=== PATIENT | female | born 1980 | race Caucasian/White ===

== ENCOUNTER 2018-10-29 14:37 | Emergency (ER) | payer OTHER ==
[2018-10-29] MEDS ORDERED: SODIUM CHLORIDE 0.9% 1,000 ML IV STA (15:16)
[2018-10-29] MEDS ORDERED: LORazepam 2 MG/ML INJ IV STA ×2 (15:17→16:09)
--- NOTE | 2018-10-29 15:21 | ED ---
General Adult HPI - General Chief complaint: Anxiety Stated complaint: ETOH Source: patient, EMS, RN notes reviewed, old records reviewed Mode of arrival: EMS Limitations: no limitations - History of Present Illness Initial comments: 38-year-old female patient with past medical history of alcohol abuse presents to ER with 2 days of anxiety, chest pain, shortness of breath. Patient states that she is feeling very anxious, has had problems with anxiety in the past. Patient states that when she starts to feel anxious she gets a pain sensation in her left breast, feels short of breath. Patient states that this resolves when she begins to feel less anxious. Patient states that this is been ongoing for approximately 2 days. Pt denies pleuritic chest pain, pt states that pain is not affected by exertion. Patient denies any recreational drug use. Patient denies any other complaints. Patient denies abdominal pain, diarrhea, fever/ chills. Patient denies dysuria, urinary symptoms. Systemic: Pt denies fatigue, myalgia, fever/chills, rash. Pt denies weakness, night sweats, weight loss. Neuro: Pt denies headache, visual disturbances, syncope or pre-syncope. HEENT: Pt denies ocular discharge or irritation, otalgia, rhinorrhea, pharyngitis or notable lymphadenopathy. Cardiopulmonary: Pt denies heart palpitations, dyspnea on exertion. Abdominal/GI: Pt denies abdominal pain, n/v/d. : Pt denies dysuria, burning w/ urination, frequency/urgency. Denies new onset urinary or bowel incontinence. MSK: Pt denies myalgia, loss of strength or function in extremities. Neuro: Pt denies new onset weakness, paresthesias. - Related Data Home Medications Medication Instructions Recorded Confirmed Loratadine [Claritin] 10 mg PO DAILY 10/29/18 10/29/18 Losartan Potassium 50 mg PO DAILY 10/29/18 10/29/18 Omeprazole 20 mg PO DAILY 10/29/18 10/29/18 valACYclovir [Valtrex] 500 mg PO DAILY 10/29/18 10/29/18 Allergies Allergy/AdvReac Type Severity Reaction Status Date / Time amoxicillin [From Augmentin] Allergy Rash/Hives Verified 10/29/18 15:11 clavulanic acid Allergy Rash/Hives Verified 10/29/18 15:11 [From Augmentin] sulfamethoxazole Allergy Rash/Hives Verified 10/29/18 15:11 [From Bactrim] trimethoprim [From Bactrim] Allergy Rash/Hives Verified 10/29/18 15:11 Review of Systems ROS Statement: Those systems with pertinent positive or pertinent negative responses have been documented in the HPI. ROS Other: All systems not noted in ROS Statement are negative. Past Medical History Past Medical History: Hypertension, Skin Disorder Additional Past Medical History / Comment(s): Skin diana, back pain History of Any Multi-Drug Resistant Organisms: None Reported Past Surgical History: No Surgical Hx Reported Past Psychological History: Anxiety, Depression Smoking Status: Current every day smoker Past Alcohol Use History: Abuse, Heavy Past Drug Use History: Cocaine, Marijuana General Exam - General Exam Comments Initial Comments: Constitutional: NAD, AOX3, Pt has pleasant affect. HEENT: NC/AT, trachea midline, neck supple, no lymphadenopathy. Posterior pharynx non erythematous, without exudates. External ears appear normal, without discharge. Mucous membranes moist. Eyes PERRLA, EOM intact. There is no scleral icterus. No pallor noted. Cardiopulmonary: RRR, no murmurs, rubs or gallops, no JVD noted. Lungs CTAB in anterior and posterior graves. No peripheral edema. Abdominal exam: Abdomen soft and non-distended. Abdomen non-tender to palpation in all 4 quadrants. Bowel sounds active in LLQ. No hepatosplenomegaly. No ecchymosis Neuro: CN II-XII grossly intact. No nuchal rigidity. MSK: No posterior calf tenderness bilaterally, homans sign negative bilaterally. Posterior tibialis and radial pulse +2 bilaterally. Sensation intact in upper and lower extremities. Full active ROM in upper and lower extremities, 5/5 strength. Limitations: no limitations Course Vital Signs 10/29/18 10/29/18 10/29/18 14:42 16:16 17:51 Temperature 97.4 F L Pulse Rate 111 H 105 H 92 Respiratory 18 16 16 Rate Blood Pressure 141/104 125/87 115/83 O2 Sat by Pulse 99 100 99 Oximetry 10/29/18 19:06 Temperature 98.4 F Pulse Rate 101 H Respiratory 18 Rate Blood Pressure 115/80 O2 Sat by Pulse 100 Oximetry Medical Decision Making - Medical Decision Making 38-year-old female patient with past medical history of alcohol abuse presents to ER with 2 days of anxiety, chest pain, shortness of breath. Patient states that she is feeling very anxious, has had problems with anxiety in the past. Patient states that when she starts to feel anxious she gets a pain sensation in her left breast, feels short of breath. Patient states that this resolves when she begins to feel less anxious. Patient states that this is been ongoing for approximately 2 days. Pt denies pleuritic chest pain, pt states that pain is not affected by exertion. Vital signs displayed mild tachycardia of 111 bpm , otherwise stable, 99% SpO2 on room air. Physical exam did not display acute pathology. Laboratory investigations were conducted, CBC noncompressive, CMP revealed creatinine of 1.3 which is stable from 04/2016. AST mildly elevated at 127. Alk phos mildly elevated at 134. UA displayed 11 squamous epithelial cells, negative hCG. Troponin negative. CK-MB within normal limits. Coagulation studies were non impressive. D-dimer was wnl. EKG was not concerning for acute ischemia. Pt dx with atypical chest pain likely 2/2 to anxiety. Pt to f/u with PCP in 1-2 days for continued evaluation. Patient given strict return precautions for return to ED. Patient to return to ED if any new signs symptoms develop, chest pain returns, if shortness of breath returns, if any other new complaints, or if condition worsens in anyway. Pt states she is getting ride home. Case discussed in depth with Dr. Alfaro. Provided substance abuse referrals. - Lab Data Result diagrams: 10/29/18 15:40 10/29/18 15:40 Lab Results 10/29/18 10/29/18 10/29/18 Range/Units 15:37 15:37 15:40 WBC (3.8-10.6) k/uL RBC (3.80-5.40) m/uL Hgb (11.4-16.0) gm/dL Hct (34.0-46.0) % MCV (80.0-100.0) fL MCH (25.0-35.0) pg MCHC (31.0-37.0) g/dL RDW (11.5-15.5) % Plt Count (150-450) k/uL Neutrophils % % Lymphocytes % % Monocytes % % Eosinophils % % Basophils % % Neutrophils # (1.3-7.7) k/uL Lymphocytes # (1.0-4.8) k/uL Monocytes # (0-1.0) k/uL Eosinophils # (0-0.7) k/uL Basophils # (0-0.2) k/uL Macrocytosis PT (9.0-12.0) sec INR (<1.2) APTT (22.0-30.0) sec D-Dimer (<0.60) mg/L FEU Sodium (137-145) mmol/L Potassium (3.5-5.1) mmol/L Chloride (98-107) mmol/L Carbon Dioxide (22-30) mmol/L Anion Gap mmol/L BUN (7-17) mg/dL Creatinine (0.52-1.04) mg/dL Est GFR (CKD-EPI)AfAm (>60 ml/min/1.73 sqM) Est GFR (CKD-EPI)NonAf (>60 ml/min/1.73 sqM) Glucose (74-99) mg/dL Calcium (8.4-10.2) mg/dL Magnesium (1.6-2.3) mg/dL Total Bilirubin (0.2-1.3) mg/dL AST (14-36) U/L ALT (9-52) U/L Alkaline Phosphatase (38-126) U/L Total Creatine Kinase 114 (30-135) U/L CK-MB (CK-2) 0.7 (0.0-2.4) ng/mL CK-MB (CK-2) Rel Index 0.6 Troponin I <0.012 (0.000-0.034) ng/mL Total Protein (6.3-8.2) g/dL Albumin (3.5-5.0) g/dL Urine Color Yellow Urine Appearance Clear (Clear) Urine pH 5.5 (5.0-8.0) Ur Specific [place] 1.011 (1.001-1.035) Urine Protein 1+ H (Negative) Urine Glucose (UA) Negative (Negative) Urine Ketones Negative (Negative) Urine Blood Negative (Negative) Urine Nitrite Negative (Negative) Urine Bilirubin Negative (Negative) Urine Urobilinogen <2.0 (<2.0) mg/dL Ur Leukocyte Esterase Negative (Negative) Urine RBC <1 (0-5) /hpf Urine WBC 2 (0-5) /hpf Ur Squamous Epith Cells 11 H (0-4) /hpf Amorphous Sediment Rare H (None) /hpf Hyaline Casts 32 H (0-2) /lpf Urine Mucus Rare H (None) /hpf Urine HCG, Qual Not Detected (Not Detectd) 10/29/18 10/29/18 10/29/18 Range/Units 15:40 15:40 15:40 WBC 4.8 (3.8-10.6) k/uL RBC 4.39 (3.80-5.40) m/uL Hgb 15.0 (11.4-16.0) gm/dL Hct 45.6 (34.0-46.0) % MCV 103.9 H (80.0-100.0) fL MCH 34.3 (25.0-35.0) pg MCHC 33.0 (31.0-37.0) g/dL RDW 13.8 (11.5-15.5) % Plt Count 105 L (150-450) k/uL Neutrophils % 61 % Lymphocytes % 30 % Monocytes % 4 % Eosinophils % 3 % Basophils % 1 % Neutrophils # 2.9 (1.3-7.7) k/uL Lymphocytes # 1.4 (1.0-4.8) k/uL Monocytes # 0.2 (0-1.0) k/uL Eosinophils # 0.1 (0-0.7) k/uL Basophils # 0.0 (0-0.2) k/uL Macrocytosis Slight PT 9.3 (9.0-12.0) sec INR 0.8 (<1.2) APTT 27.7 (22.0-30.0) sec D-Dimer 0.52 (<0.60) mg/L FEU Sodium 143 (137-145) mmol/L Potassium 4.3 (3.5-5.1) mmol/L Chloride 105 (98-107) mmol/L Carbon Dioxide 23 (22-30) mmol/L Anion Gap 15 mmol/L BUN 9 (7-17) mg/dL Creatinine 1.30 H (0.52-1.04) mg/dL Est GFR (CKD-EPI)AfAm 60 (>60 ml/min/1.73 sqM) Est GFR (CKD-EPI)NonAf 52 (>60 ml/min/1.73 sqM) Glucose 88 (74-99) mg/dL Calcium 9.6 (8.4-10.2) mg/dL Magnesium 2.2 (1.6-2.3) mg/dL Total Bilirubin 0.6 (0.2-1.3) mg/dL AST 127 H (14-36) U/L ALT 44 (9-52) U/L Alkaline Phosphatase 134 H (38-126) U/L Total Creatine Kinase (30-135) U/L CK-MB (CK-2) (0.0-2.4) ng/mL CK-MB (CK-2) Rel Index Troponin I (0.000-0.034) ng/mL Total Protein 9.8 H (6.3-8.2) g/dL Albumin 5.4 H (3.5-5.0) g/dL Urine Color Urine Appearance (Clear) Urine pH (5.0-8.0) Ur Specific [place] (1.001-1.035) Urine Protein (Negative) Urine Glucose (UA) (Negative) Urine Ketones (Negative) Urine Blood (Negative) Urine Nitrite (Negative) Urine Bilirubin (Negative) Urine Urobilinogen (<2.0) mg/dL Ur Leukocyte Esterase (Negative) Urine RBC (0-5) /hpf Urine WBC (0-5) /hpf Ur Squamous Epith Cells (0-4) /hpf Amorphous Sediment (None) /hpf Hyaline Casts (0-2) /lpf Urine Mucus (None) /hpf Urine HCG, Qual (Not Detectd) - EKG Data -: EKG Interpreted by Me (and dr olson;) EKG Comments: Ventricular rate 107,. And for 126, QRS 88, QTC is QTC 344/459. Sinus tachycardia. Otherwise normal EKG. Disposition Clinical Impression: Acute anxiety, Atypical chest pain Disposition: HOME SELF-CARE Condition: Good Instructions: Generalized Anxiety Disorder (ED), Abuse of Alcohol (ED), Noncardiac Chest Pain (ED) Additional Instructions: Patient to adhere to previously discussed treatment plan and will take medication(s) as directed. Patient to follow up with PCP in 1-2 days. Patient to return to ED if symptoms do not improve. Is patient prescribed a controlled substance at d/c from ED?: No Referrals: Ji Lan MD [Primary Care Provider] - 1-2 days Time of Disposition: 18:40
--- NOTE | 2018-10-29 15:57 | XR ---
EXAMINATION TYPE: XR chest 2V DATE OF EXAM: 10/29/2018 COMPARISON: None HISTORY: Chest pain TECHNIQUE: Frontal and lateral views of the chest are obtained. FINDINGS: Nodular density superimposed over the posterior right fifth rib measuring approximately 1 c m. There is no pleural effusion or pneumothorax seen. The cardiac silhouette size is within normal l imits, small. Prominent lung volume may be indicative of underlying COPD. There are overlying cardiac leads. The osseous structures are intact. IMPRESSION: Indeterminate right upper lobe lung nodule.
[2018-10-29 16:04] LABS: Amorphous Sediment,Urine Rare /hpf; Appearance,Urine Clear (Clear); Bilirubin,Urine Negative (Negative); Blood,Urine Negative (Negative); Color,Urine Yellow; Glucose,Urine (UA) Negative (Negative); Hyaline Casts,Urine 32 /lpf (0-2); Ketones,Urine Negative (Negative); Leukocyte Esterase,Urine Negative (Negative); Mucus,Urine Rare /hpf; Nitrite,Urine Negative (Negative); PH, Urine 5.5 (5.0-8.0); Protein,Urine 1+ (Negative); RBC,Urine <1 /hpf (0-5); Specific Gravity,Urine 1.011 (1.001-1.035); Squamous Epithelial Cell,Urine 11 /hpf (0-4); Urobilinogen,Urine <2.0 mg/dL (<2.0)
[2018-10-29 16:08] LABS: Basophils % (A) 1 %; Eosinophils # (A) 0.1 k/uL (0-0.7); Eosinophils % (A) 3 %; HCT 45.6 % (34.0-46.0); Lymphocytes # (A) 1.4 k/uL (1.0-4.8); Lymphocytes % (A) 30 %; MCH 34.3 pg (25.0-35.0); MCV 103.9 fL (80.0-100.0); Macrocytosis Slight; Mean Platelet Volume 6.5; Monocytes # (A) 0.2 k/uL (0-1.0); Monocytes % (A) 4 %; Neutrophils # (A) 2.9 k/uL (1.3-7.7); Neutrophils % (A) 61 %; Platelet Count 105 k/uL (150-450); RBC 4.39 m/uL (3.80-5.40); RDW 13.8 % (11.5-15.5); WBC 4.8 k/uL (3.8-10.6)
[2018-10-29 16:16] LABS: Albumin 5.4 g/dL (3.5-5.0); Calcium 9.6 mg/dL (8.4-10.2); Magnesium 2.2 mg/dL (1.6-2.3); Potassium 4.3 mmol/L (3.5-5.1); Total Bilirubin 0.6 mg/dL (0.2-1.3); Total Protein 9.8 g/dL (6.3-8.2)
[2018-10-29 16:17] LABS: Creatine Kinase 114 U/L (30-135)
[2018-10-29 16:18] LABS: D-Dimer 0.52 mg/L FEU (<0.60); INR 0.8 (<1.2); Partial Thromboplastin Time 27.7 sec (22.0-30.0); Prothrombin Time 9.3 sec (9.0-12.0)
[2018-10-29 16:31] LABS: Creatine Kinase MB 0.7 ng/mL (0.0-2.4); Troponin I <0.012 ng/mL (0.000-0.034)
[2018-10-29 19:07] VITALS: BP 115/80; PULSE 101; RESP 18; TEMP 98.4
== END 2018-10-29 19:06 | disposition home or self-care (01) ==
LOC: EC 14:37
DX: F41.9 Anxiety disorder, unspecified (principal); R07.89 Other chest pain; R06.02 Shortness of breath; R74.0 Nonspecific elevation of levels of transaminase and lactic acid dehydrogenase [LDH]; R74.8 Abnormal levels of other serum enzymes; N64.4 Mastodynia; I10 Essential (primary) hypertension; F32.9 Major depressive disorder, single episode, unspecified; F17.200 Nicotine dependence, unspecified, uncomplicated; Z53.8 Procedure and treatment not carried out for other reasons; Z79.899 Other long term (current) drug therapy; Z88.0 Allergy status to penicillin; Z88.2 Allergy status to sulfonamides
CPT/HCPCS: 36415; 93005; 85379; 80053; 82550; 82553; 83735; 84484; 85025; 85610; 85730; 81001; 81025; 71046; 99284; 96374; 96361 ×3; J2060

== ENCOUNTER → 2021-10-07 | Outpatient (CLI) | payer OTHER | END | disposition home or self-care (01) | LOC: PNWHC3 12:57 | PROVIDERS: ATTEND Specialist | DX: Z53.9 Procedure and treatment not carried out, unspecified reason (principal) ==

== ENCOUNTER 2022-06-25 09:20 | Emergency (ER) | payer OTHER ==
[2022-06-25 10:04] VITALS: TEMP 97.5
--- NOTE | 2022-06-25 10:11 | ED ---
Seizure HPI - General Source: patient, EMS, RN notes reviewed Mode of arrival: EMS Limitations: no limitations <Jn Reyes - Last Filed: 06/25/22 15:33> <John Lynn - Last Filed: 06/25/22 21:11> - General Chief Complaint: Seizure Stated Complaint: poss seizure Time Seen by Provider: 06/25/22 09:28 - History of Present Illness Initial Comments: 42-year-old female presents emergency Department chief complaint of seizure. Patient is right-hand via EMS from [facility]. Patient has been at [facility] for 5 days after state at [facility] patient has known liver failure from alcohol abuse, patient is known to be jaundice. Patient initially was unresponsive reportedly had a seizure with bleeding from her tongue. Patient was postictal black mentation has been improving. She has no specific complaints other than mild headache, fatigue feeling. (Jn Reyes) - Related Data Home Medications Medication Instructions Recorded Confirmed Omeprazole 20 mg PO DAILY 10/29/18 06/25/22 Acyclovir 400 mg PO DAILY@69906/25/22 06/25/22 Ascorbic Acid [Vitamin C] 500 mg PO DAILY@69906/25/22 06/25/22 Cholecalciferol [Vitamin D3 (25 50 mcg PO HS 06/25/22 06/25/22 Mcg = 1000 Iu)] Famotidine [Pepcid] 20 mg PO DAILY@69906/25/22 06/25/22 Folic Acid 1 mg PO DAILY@69906/25/22 06/25/22 Furosemide [Lasix] 20 mg PO DAILY 06/25/22 06/25/22 Ibuprofen [Motrin Ib] 400 mg PO Q6H PRN 06/25/22 06/25/22 Ipratropium-Albuterol Nebulize 3 ml INHALATION RT-QID 06/25/22 06/25/22 [Duoneb 0.5 mg-3 mg/3 ml Soln] Levothyroxine Sodium [Synthroid] 75 mcg PO AC-BRKFST@0706/25/22 06/25/22 Metoprolol Tartrate [Lopressor] 12.5 mg PO BID@0700,1600 06/25/22 06/25/22 Ondansetron [Zofran] 4 mg PO Q6H PRN 06/25/22 06/25/22 Potassium Chloride [Potassium 10 meq PO DAILY 06/25/22 06/25/22 Chloride ER] Vitamin B Complex 2 cap PO HS 06/25/22 06/25/22 oxyCODONE HCL [OxyIR] 5 mg PO Q8H PRN 06/25/22 06/25/22 Allergies Allergy/AdvReac Type Severity Reaction Status Date / Time amoxicillin [From Augmentin] Allergy Rash/Hives Verified 06/25/22 12:27 clavulanic acid Allergy Rash/Hives Verified 06/25/22 12:27 [From Augmentin] morphine Allergy Unknown Verified 06/25/22 12:27 Penicillins Allergy Unknown Verified 06/25/22 12:27 sulfamethoxazole Allergy Rash/Hives Verified 06/25/22 12:27 [From Bactrim] trimethoprim [From Bactrim] Allergy Rash/Hives Verified 06/25/22 12:27 Review of Systems ROS Other: All systems not noted in ROS Statement are negative. <Jn Reyes - Last Filed: 06/25/22 15:33> ROS Other: All systems not noted in ROS Statement are negative. <John Lynn - Last Filed: 06/25/22 21:11> ROS Statement: Those systems with pertinent positive or pertinent negative responses have been documented in the HPI. Past Medical History Past Medical History: Hypertension, Skin Disorder Additional Past Medical History / Comment(s): Skin diana, back pain History of Any Multi-Drug Resistant Organisms: None Reported Past Surgical History: No Surgical Hx Reported Past Psychological History: Anxiety, Depression Smoking Status: Former smoker Past Alcohol Use History: Abuse, Heavy Past Drug Use History: Cocaine, Marijuana <Jn Reyes - Last Filed: 06/25/22 15:33> General Exam Limitations: no limitations General appearance: alert, in no apparent distress, other (Icterus) Head exam: Present: atraumatic, normocephalic, normal inspection Eye exam: Present: normal appearance, PERRL, EOMI. Absent: scleral icterus, conjunctival injection, periorbital swelling ENT exam: Present: mucous membranes moist. Absent: normal exam, normal oropharynx (Bite barby note on tongue, no active bleeding) Neck exam: Present: normal inspection, full ROM. Absent: tenderness, meningismus, lymphadenopathy Respiratory exam: Present: normal lung sounds bilaterally. Absent: respiratory distress, wheezes, rales, rhonchi, stridor Cardiovascular Exam: Present: regular rate, normal rhythm, normal heart sounds. Absent: systolic murmur, diastolic murmur, rubs, gallop, clicks Neurological exam: Present: alert, oriented X3, CN II-XII intact, reflexes normal. Absent: motor sensory deficit Skin exam: Present: warm, dry, intact, normal color. Absent: rash <Jn Reyes - Last Filed: 06/25/22 15:33> Course Vital Signs 06/25/22 06/25/22 06/25/22 10:01 15:21 16:27 Temperature 97.5 F L Pulse Rate 86 79 75 Respiratory 18 18 18 Rate Blood Pressure 99/82 117/92 69/44 O2 Sat by Pulse 98 98 100 Oximetry 06/25/22 06/25/22 06/25/22 17:50 18:00 18:54 Temperature Pulse Rate 74 71 71 Respiratory 16 16 16 Rate Blood Pressure 118/87 118/87 111/82 O2 Sat by Pulse 97 97 98 Oximetry Medical Decision Making - Lab Data Result diagrams: 06/25/22 11:12 06/25/22 11:12 <Jn Reyes - Last Filed: 06/25/22 15:33> - Lab Data Result diagrams: 06/25/22 11:12 06/25/22 11:12 <John Lynn - Last Filed: 06/25/22 21:11> - Medical Decision Making 42-year-old female presented for possible seizure at [facility]. Patient may have had a seizure versus syncopal episode. Patient acting her baseline, is a ble drive further information see that she was at [facility] secondary to weakness unable to care for herself. She states she lives with her parents. 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 She is followed by [facility]. Patient recent stop drinking secondary to liver disease and has been sober since admission at [facility]. Patient does not endorse and cleansed headache neck pain associated complaints other than mild tongue injury. Patient's labs reveal liver failure which is consistent with prior labs bilirubin and mildly elevated ammonia level Estella given patient's liver dise ase. Patient was given lactulose may require to be on daily lactulose. (Jn Reyes) I was notified by nursing staff that when EMS arrived to take the patient, patient was hypotensive on the monitor. I asked him to give a 500 mL bolus. I did present bedside to evaluate the patient. She is asymptomatic in terms of her low blood pressure. She is still receiving IV fluids at this time however her pressure shows 110 over 80s. I discussed at length with the patient as well as her daughter. It does appear that patient is having liver dysfunction likely secondary to liver disease from chronic alcoholism. I reviewed the labs with the mid-level provider earlier today, and patient had an elevated bilirubin at the other facility around 10. It is more elevated stay at 15. Coags are slightly worse. LFTs and alk phos are similar. Ammonia is slightly elevated to 64 and she was given a prescription for lactulose. Remainder the labs are unremarkable. She did present for concern for possible syncopal episode versus new onset seizure. Seizure workup was negative. I did discuss with him that we do not have GI services with liver specialist at our facility. Patient does have a history of a Whipple procedure done at [facility]. We discussed the option of transfer, with potential for boarding in our ER for multiple days versus discharge back to her facility and outpatient follow-up and the patient as well as her sister prefer outpatient follow-up. Patient will be discharged back to her facility. I did discuss with him that I believe it is reasonable to discharge home at this time with strict return precautions. They were in agreement with this plan. I recommended follow-up with her surgeon at [facility]. Patient otherwise is asymptomatic at this time. She is obviously jaundiced. They were in agreement with this plan. Patient will return if needed. Pressure remains within normal limits. Patient is discharged in stable condition. (John Lynn) - Lab Data Lab Results 06/25/22 06/25/22 06/25/22 Range/Units 11:12 11:12 11:12 WBC 12.2 H (3.8-10.6) k/uL RBC 3.01 L (3.80-5.40) m/uL Hgb 10.2 L (11.4-16.0) gm/dL Hct 33.6 L (34.0-46.0) % MCV 111.6 H (80.0-100.0) fL MCH 34.0 (25.0-35.0) pg MCHC 30.4 L (31.0-37.0) g/dL RDW 20.6 H (11.5-15.5) % Plt Count 30 L (150-450) k/uL MPV 12.7 Neutrophils % 73 % Lymphocytes % 14 % Monocytes % 9 % Eosinophils % 0 % Basophils % 1 % Neutrophils # 8.9 H (1.3-7.7) k/uL Lymphocytes # 1.7 (1.0-4.8) k/uL Monocytes # 1.1 H (0-1.0) k/uL Eosinophils # 0.0 (0-0.7) k/uL Basophils # 0.2 (0-0.2) k/uL Polychromasia Present Hypochromasia Marked Poikilocytosis Slight Poikilocytosis (manual Present Anisocytosis Moderate Macrocytosis Marked A PT 22.1 H (9.0-12.0) sec INR 2.2 H (<1.2) APTT >200.0 H* (22.0-30.0) sec Sodium 134 L (137-145) mmol/L Potassium 4.1 (3.5-5.1) mmol/L Chloride 108 H (98-107) mmol/L Carbon Dioxide 13 L (22-30) mmol/L Anion Gap 13 mmol/L BUN 8 (7-17) mg/dL Creatinine 2.19 H (0.52-1.04) mg/dL Est GFR (CKD-EPI)AfAm 31 (>60 ml/min/1.73 sqM) Est GFR (CKD-EPI)NonAf 27 (>60 ml/min/1.73 sqM) Glucose 68 L (74-99) mg/dL POC Glucose (mg/dL) (70-110) mg/dL POC Glu [employer] Operator Helper ID Calcium 8.5 (8.4-10.2) mg/dL Magnesium 1.7 (1.6-2.3) mg/dL Total Bilirubin 15.1 H* (0.2-1.3) mg/dL AST 75 H (14-36) U/L ALT 24 (4-34) U/L Alkaline Phosphatase 213 H (38-126) U/L Ammonia (<30) umol/L Total Protein 5.7 L (6.3-8.2) g/dL Albumin 2.2 L (3.5-5.0) g/dL Urine Color Urine Appearance (Clear) Urine pH (5.0-8.0) Ur Specific [place] (1.001-1.035) Urine Protein (Negative) Urine Glucose (UA) (Negative) Urine Ketones (Negative) Urine Blood (Negative) Urine Nitrite (Negative) Urine Bilirubin (Negative) Urine Urobilinogen (<2.0) mg/dL Ur Leukocyte Esterase (Negative) Urine RBC (0-5) /hpf Urine WBC (0-5) /hpf Ur Squamous Epith Cells (0-4) /hpf Urine Bacteria (None) /hpf Urine Mucus (None) /hpf 06/25/22 06/25/22 06/25/22 Range/Units 11:21 13:50 15:26 WBC (3.8-10.6) k/uL RBC (3.80-5.40) m/uL Hgb (11.4-16.0) gm/dL Hct (34.0-46.0) % MCV (80.0-100.0) fL MCH (25.0-35.0) pg MCHC (31.0-37.0) g/dL RDW (11.5-15.5) % Plt Count (150-450) k/uL MPV Neutrophils % % Lymphocytes % % Monocytes % % Eosinophils % % Basophils % % Neutrophils # (1.3-7.7) k/uL Lymphocytes # (1.0-4.8) k/uL Monocytes # (0-1.0) k/uL Eosinophils # (0-0.7) k/uL Basophils # (0-0.2) k/uL Polychromasia Hypochromasia Poikilocytosis Poikilocytosis (manual Anisocytosis Macrocytosis PT (9.0-12.0) sec INR (<1.2) APTT (22.0-30.0) sec Sodium (137-145) mmol/L Potassium (3.5-5.1) mmol/L Chloride (98-107) mmol/L Carbon Dioxide (22-30) mmol/L Anion Gap mmol/L BUN (7-17) mg/dL Creatinine (0.52-1.04) mg/dL Est GFR (CKD-EPI)AfAm (>60 ml/min/1.73 sqM) Est GFR (CKD-EPI)NonAf (>60 ml/min/1.73 sqM) Glucose (74-99) mg/dL POC Glucose (mg/dL) 79 (70-110) mg/dL POC Glu [employer] H[employer] Operator Helper ID Hardy Celaya Calcium (8.4-10.2) mg/dL Magnesium (1.6-2.3) mg/dL Total Bilirubin (0.2-1.3) mg/dL AST (14-36) U/L ALT (4-34) U/L Alkaline Phosphatase (38-126) U/L Ammonia 64 H (<30) umol/L Total Protein (6.3-8.2) g/dL Albumin (3.5-5.0) g/dL Urine Color Dark Brown Urine Appearance Cloudy H (Clear) Urine pH 5.5 (5.0-8.0) Ur Specific [place] 1.010 (1.001-1.035) Urine Protein Trace H (Negative) Urine Glucose (UA) Negative (Negative) Urine Ketones Negative (Negative) Urine Blood Large H (Negative) Urine Nitrite Negative (Negative) Urine Bilirubin 2+ H (Negative) Urine Urobilinogen <2.0 (<2.0) mg/dL Ur Leukocyte Esterase Large H (Negative) Urine RBC 2 (0-5) /hpf Urine WBC 21 H (0-5) /hpf Ur Squamous Epith Cells 13 H (0-4) /hpf Urine Bacteria Rare H (None) /hpf Urine Mucus Rare H (None) /hpf Disposition Is patient prescribed a controlled substance at d/c from ED?: No Time of Disposition: 15:38 <Jn Reyes - Last Filed: 06/25/22 15:33> <John Lynn - Last Filed: 06/25/22 21:11> Clinical Impression: Chronic liver failure, Seizure, History of alcoholism Disposition: HOME SELF-CARE Condition: Poor Instructions (If sedation given, give patient instructions): Seizure/Epilepsy Discharge Instructions & Follow-Up Additional Instructions: Follow-up with GI/neurology. Please return to the Emergency Department if symptoms worsen or any other concerns. Referrals: Nonstaff,Physician [REFERRING] - 1-2 days
[2022-06-25 12:00] LABS: Albumin 2.2 g/dL (3.5-5.0); Calcium 8.5 mg/dL (8.4-10.2); Magnesium 1.7 mg/dL (1.6-2.3); Potassium 4.1 mmol/L (3.5-5.1)
[2022-06-25 12:08] LABS: Appearance,Urine Cloudy (Clear); Bacteria,Urine Rare /hpf; Bilirubin,Urine 2+ (Negative); Blood,Urine Large (Negative); Color,Urine Dark Brown; Glucose,Urine (UA) Negative (Negative); Ketones,Urine Negative (Negative); Leukocyte Esterase,Urine Large (Negative); Mucus,Urine Rare /hpf; Nitrite,Urine Negative (Negative); PH, Urine 5.5 (5.0-8.0); Protein,Urine Trace (Negative); RBC,Urine 2 /hpf (0-5); Squamous Epithelial Cell,Urine 13 /hpf (0-4); Urobilinogen,Urine <2.0 mg/dL (<2.0); WBC,Urine 21 /hpf (0-5)
[2022-06-25 12:19] LABS: Anisocytosis Moderate; Basophils # (A) 0.2 k/uL (0-0.2); Basophils % (A) 1 %; Eosinophils % (A) 0 %; HCT 33.6 % (34.0-46.0); HGB 10.2 gm/dL (11.4-16.0); Hypochromasia Marked; Lymphocytes # (A) 1.7 k/uL (1.0-4.8); Lymphocytes % (A) 14 %; MCHC 30.4 g/dL (31.0-37.0); MCV 111.6 fL (80.0-100.0); Macrocytosis Marked; Mean Platelet Volume 12.7; Monocytes # (A) 1.1 k/uL (0-1.0); Monocytes % (A) 9 %; Neutrophils # (A) 8.9 k/uL (1.3-7.7); Neutrophils % (A) 73 %; Poikilocytosis Slight; RBC 3.01 m/uL (3.80-5.40); RDW 20.6 % (11.5-15.5); WBC 12.2 k/uL (3.8-10.6)
[2022-06-25 12:20] LABS: Total Bilirubin 15.1 mg/dL (0.2-1.3); Total Protein 5.7 g/dL (6.3-8.2)
[2022-06-25 12:45] LABS: Prothrombin Time 22.1 sec (9.0-12.0)
[2022-06-25 12:49] LABS: INR 2.2 (<1.2); Partial Thromboplastin Time >200.0 sec (22.0-30.0)
[2022-06-25 14:04] LABS: Poikilocytosis (M) Present; Polychromasia Present
[2022-06-25 14:05] LABS: Platelet Count 30 k/uL (150-450)
[2022-06-25] MEDS ORDERED: LACTULOSE 20 GM/30 ML CUP PO ONE (15:32)
[2022-06-25 15:37] LABS: Glucose,Whole Blood 79 mg/dL (70-110)
[2022-06-25] MEDS ORDERED: SODIUM CHLORIDE 0.9% 500 ML 500 ML IV ONE (16:35)
[2022-06-25 17:50] VITALS: RESP 16
[2022-06-25 18:23] VITALS: PULSE 71
[2022-06-25 18:55] VITALS: BP 111/82
--- NOTE | 2022-06-26 16:39 | CT ---
EXAMINATION TYPE: CT brain wo con DATE OF EXAM: 06/25/2022 COMPARISON: None HISTORY: Seizure CT DLP: 1118.4 mGycm. Automated Exposure Control for Dose Reduction was Utilized. TECHNIQUE: CT scan of the head is performed without contrast. FINDINGS: No acute intracranial hemorrhage or midline shift identified. Mild/moderate sulcal promine nce particularly over the bilateral superior frontal lobes is isodense to CSF. Findings prominent rahul ecially for patient's chronologic age. No hydrocephalus. Mild low attenuation in the periventricular white matter. The globes are intact and the visualized sinuses are clear. IMPRESSION: Mild cerebral atrophy and chronic small vessel ischemic change. Small to tiny chronic sub dural hygromas superiorly are noted. Preliminary report provided by on site radiologist.
== END 2022-06-25 19:04 | disposition home or self-care (01) ==
LOC: EC 09:20
DX: R56.9 Unspecified convulsions (principal); K72.10 Chronic hepatic failure without coma; F10.21 Alcohol dependence, in remission; I10 Essential (primary) hypertension; Z87.891 Personal history of nicotine dependence; Z79.899 Other long term (current) drug therapy; Z88.0 Allergy status to penicillin; Z88.1 Allergy status to other antibiotic agents; Z88.6 Allergy status to analgesic agent; Z88.2 Allergy status to sulfonamides
CPT/HCPCS: 36415; 70450; 80053; 81001; 82140; 83735; 85025; 85610; 85730; 87077; 87086; 87186; 99285

== ENCOUNTER 2022-06-26 18:37 | Inpatient (IN) | payer OTHER ==
[2022-06-26 20:27] LABS: ALT 22 U/L (4-34); AST 73 U/L (14-36); Acetaminophen <10.0 ug/mL; African American GFR (CKD) 26 (>60 ml/min/1.73 sqM); Albumin 2.2 g/dL (3.5-5.0); Alkaline Phosphatase 222 U/L (38-126); Anion Gap 15 mmol/L; Bilirubin, Conjugated 10.7 mg/dL (0.0-0.3); Bilirubin,Unconjugated 1.3 mg/dL (0.0-1.1); Blood Urea Nitrogen 9 mg/dL (7-17); Calcium 8.2 mg/dL (8.4-10.2); Carbon Dioxide 13 mmol/L (22-30); Chloride 109 mmol/L (98-107); Creatine Kinase 24 U/L (30-135); Glucose 81 mg/dL (74-99); Magnesium 1.7 mg/dL (1.6-2.3); Non-African American GFR(CKD) 22 (>60 ml/min/1.73 sqM); Potassium 3.7 mmol/L (3.5-5.1); Sodium 137 mmol/L (137-145)
[2022-06-26 20:29] LABS: Anisocytosis Moderate; Basophils # (A) 0.1 k/uL (0-0.2); Basophils % (A) 1 %; Eosinophils # (A) 0.1 k/uL (0-0.7); Eosinophils % (A) 0 %; HCT 32.8 % (34.0-46.0); HGB 9.8 gm/dL (11.4-16.0); Hypochromasia Marked; Lymphocytes # (A) 1.5 k/uL (1.0-4.8); Lymphocytes % (A) 12 %; MCV 113.6 fL (80.0-100.0); Macrocytosis Marked; Mean Platelet Volume 12.4; Monocytes # (A) 0.8 k/uL (0-1.0); Monocytes % (A) 7 %; Neutrophils # (A) 9.4 k/uL (1.3-7.7); Neutrophils % (A) 77 %; Poikilocytosis Slight; RBC 2.89 m/uL (3.80-5.40); RDW 20.8 % (11.5-15.5); WBC 12.2 k/uL (3.8-10.6)
[2022-06-26 20:31] LABS: Total Protein 5.6 g/dL (6.3-8.2)
[2022-06-26 20:45] LABS: Lactic Acid, Venous 2.2 mmol/L (0.7-2.0)
[2022-06-26 20:56] LABS: Polychromasia Present
[2022-06-26 20:57] LABS: Platelet Count 38 k/uL (150-450)
[2022-06-26] MEDS ORDERED: LORazepam 2 MG/ML INJ IV STA (21:07)
--- NOTE | 2022-06-26 21:14 | ED ---
Seizure HPI - General Source: patient, family, EMS Mode of arrival: EMS Limitations: physical limitation <Arina Martins - Last Filed: 06/26/22 22:26> <Kurtis Juan - Last Filed: 06/27/22 08:28> - History of Present Illness MD Complaint: seizure (With history of alcohol withdrawal) -: hour(s) Description of Episode: loss of consciousness, tonic-clonic movement Witnessed: yes - by bystander Trauma: No Seizure History: history of withdrawal seizures Place: home, street/outdoors (While transferring to [facility]) Possible Precipitating Event: alcohol withdrawal Associated Symptoms: denies other symptoms Treatments Prior to Arrival: benzodiazepines <Gold Nolan - Last Filed: 06/28/22 02:56> - General Chief Complaint: Seizure Stated Complaint: seizure Time Seen by Provider: 06/26/22 18:50 - History of Present Illness Initial Comments: 42-year-old female with past medical history of whipple procedure at [facility] due to benign mass, alcohol abuse who presents to the emergency department from [facility]. Patient has history of significant alcohol abuse and last drink was 3 weeks ago. She was then hospitalized at [facility] and sent to [facility] for rehab. Family reports that they were told that the patient had acute kidney injury. She has been at the rehab facility. Yesterday was transported into [facility] for new onset seizure-like activity. Evaluation yesterday demonstrated elevated bilirubins. Family aware that her hospital did not have GI services and was requesting to follow up outpatient with neurology and GI rather than have the patient transferred to an outside facility. Family went to her rehab center today, attempted to load the patient into their vehicle and drive her to a facility that does have GI capabilities however the patient ended up having a second seizure in their vehicle. Was full tonic-clonic that lasted 30 seconds. The patient did bite her tongue. She is not on any seizure medications. Was given a prescription for lactulose yesterday. Patient did not sustain any trauma today. No other alleviating, precipitating or modifying factors (Arina Martins) - Related Data Home Medications Medication Instructions Recorded Confirmed Omeprazole 20 mg PO DAILY 10/29/18 06/27/22 Acyclovir 400 mg PO DAILY@0700 06/25/22/09/22 Ascorbic Acid [Vitamin C] 500 mg PO DAILY@69906/25/22 06/27/22 Cholecalciferol [Vitamin D3 (25 50 mcg PO HS 06/25/22 06/27/22 Mcg = 1000 Iu)] Famotidine [Pepcid] 20 mg PO DAILY@0706/25/22 06/27/22 Folic Acid 1 mg PO DAILY@0706/25/22 06/27/22 Furosemide [Lasix] 20 mg PO DAILY 06/25/22 06/27/22 Ibuprofen [Motrin Ib] 400 mg PO Q6H PRN 06/25/22 06/27/22 Ipratropium-Albuterol Nebulize 3 ml INHALATION RT-QID 06/25/22 06/27/22 [Duoneb 0.5 mg-3 mg/3 ml Soln] Levothyroxine Sodium [Synthroid] 75 mcg PO AC-BRKFST@0700 06/25/22 06/27/22 Metoprolol Tartrate [Lopressor] 12.5 mg PO BID@0700,1600 06/25/22 06/27/22 Ondansetron [Zofran] 4 mg PO Q6H PRN 06/25/22 06/27/22 Potassium Chloride [Potassium 10 meq PO DAILY 06/25/22 06/27/22 Chloride ER] Vitamin B Complex 2 cap PO HS 06/25/22 06/27/22 oxyCODONE HCL [OxyIR] 5 mg PO Q8H PRN 06/25/22 06/27/22 Allergies Allergy/AdvReac Type Severity Reaction Status Date / Time amoxicillin [From Augmentin] Allergy Rash/Hives Verified 06/27/22 07:06 clavulanic acid Allergy Rash/Hives Verified 06/27/22 07:06 [From Augmentin] morphine Allergy Unknown Verified 06/27/22 07:06 Penicillins Allergy Unknown Verified 06/27/22 07:06 sulfamethoxazole Allergy Rash/Hives Verified 06/27/22 07:06 [From Bactrim] trimethoprim [From Bactrim] Allergy Rash/Hives Verified 06/27/22 07:06 Review of Systems ROS Other: All systems not noted in ROS Statement are negative. <Arina Martins - Last Filed: 06/26/22 22:26> ROS Other: All systems not noted in ROS Statement are negative. <Kurtis Juan - Last Filed: 06/27/22 08:28> ROS Other: All systems not noted in ROS Statement are negative. <Gold Nolan - Last Filed: 06/28/22 02:56> ROS Statement: Those systems with pertinent positive or pertinent negative responses have been documented in the HPI. Past Medical History Past Medical History: Hypertension, Skin Disorder Additional Past Medical History / Comment(s): Skin diana, back pain History of Any Multi-Drug Resistant Organisms: None Reported Past Surgical History: No Surgical Hx Reported Past Psychological History: Anxiety, Depression Smoking Status: Former smoker Past Alcohol Use History: Abuse, Heavy Past Drug Use History: Cocaine, Marijuana <Arina Martins - Last Filed: 06/26/22 22:26> - Past Family History Father Family Medical History: Hypertension Mother Family Medical History: Hypertension <AnGold B - Last Filed: 06/28/22 02:56> General Exam Limitations: physical limitation General appearance: alert, in no apparent distress Head exam: Present: atraumatic, normocephalic, other (Significant jaundice) Eye exam: Present: normal appearance, PERRL, EOMI, scleral icterus. Absent: conjunctival injection, periorbital swelling ENT exam: Present: normal exam, mucous membranes moist Neck exam: Present: normal inspection. Absent: tenderness, meningismus, lymphadenopathy Respiratory exam: Present: normal lung sounds bilaterally. Absent: respiratory distress, wheezes, rales, rhonchi, stridor Cardiovascular Exam: Present: regular rate, normal rhythm, normal heart sounds. Absent: systolic murmur, diastolic murmur, rubs, gallop, clicks GI/Abdominal exam: Present: soft, normal bowel sounds. Absent: distended, tenderness, guarding, rebound, rigid Extremities exam: Present: normal inspection, full ROM, normal capillary refill. Absent: tenderness, pedal edema, joint swelling, calf tenderness Back exam: Present: normal inspection Neurological exam: Present: alert, oriented X3, CN II-XII intact Psychiatric exam: Present: normal affect, normal mood Skin exam: Present: warm, dry, intact, normal color. Absent: rash <Damer,Arina A - Last Filed: 06/26/22 22:26> Limitations: altered mental status, physical limitation General appearance: alert (arousable), in no apparent distress, anxious Head exam: Present: atraumatic, normocephalic, normal inspection Eye exam: Present: normal appearance, PERRL, EOMI. Absent: scleral icterus, conjunctival injection, periorbital swelling ENT exam: Present: normal exam, mucous membranes moist Neck exam: Present: normal inspection. Absent: tenderness, meningismus, lymp hadenopathy Respiratory exam: Present: normal lung sounds bilaterally. Absent: respiratory distress, wheezes, rales, rhonchi, stridor Cardiovascular Exam: Present: regular rate, normal rhythm, normal heart sounds. Absent: systolic murmur, diastolic murmur, rubs, gallop, clicks GI/Abdominal exam: Present: soft, normal bowel sounds. Absent: distended, tenderness, guarding, rebound, rigid Extremities exam: Present: normal inspection, full ROM, normal capillary refill. Absent: tenderness, pedal edema, joint swelling, calf tenderness Back exam: Present: normal inspection Neurological exam: Present: alert, oriented X3, CN II-XII intact Psychiatric exam: Present: normal affect, normal mood Skin exam: Present: warm, dry, intact, normal color. Absent: rash <Gold Nolan B - Last Filed: 06/28/22 02:56> Course <Arina Martins A - Last Filed: 06/26/22 22:26> <Kurtis Juan - Last Filed: 06/27/22 08:28> <Gold Nolan B - Last Filed: 06/28/22 02:56> Vital Signs 06/26/22 06/26/22 06/26/22 18:38 20:00 23:00 Temperature 97.8 F 98.2 F Pulse Rate 91 88 85 Pulse Rate [ Pulse Oximetery ] Respiratory 18 20 20 Rate Blood Pressure 99/76 99/66 109/93 Blood Pressure [Left Arm] O2 Sat by Pulse 98 97 100 Oximetry 06/27/22 06/27/22 06/27/22 00:00 01:35 06:17 Temperature 97.7 F Pulse Rate 84 85 85 Pulse Rate [ Pulse Oximetery ] Respiratory 20 16 15 Rate Blood Pressure 101/71 102/88 103/80 Blood Pressure [Left Arm] O2 Sat by Pulse 100 100 97 Oximetry 06/27/22 06/27/22 06/27/22 07:50 11:00 13:02 Temperature Pulse Rate 85 86 78 Pulse Rate [ Pulse Oximetery ] Respiratory 16 18 16 Rate Blood Pressure 101/75 109/73 109/83 Blood Pressure [Left Arm] O2 Sat by Pulse 98 97 90 L Oximetry 06/27/22 06/27/22 06/27/22 15:26 19:50 20:09 Temperature 97.4 F L Pulse Rate 74 82 89 Pulse Rate [ Pulse Oximetery ] Respiratory 16 Rate Blood Pressure 111/89 Blood Pressure [Left Arm] O2 Sat by Pulse 98 Oximetry 06/27/22 06/27/22 06/28/22 21:55 23:55 01:00 Temperature 94.8 F L 94.9 F L Pulse Rate Pulse Rate [ 86 88 Pulse Oximetery ] Respiratory 18 18 Rate Blood Pressure Blood Pressure 84/56 69/48 82/53 [Left Arm] O2 Sat by Pulse 98 95 Oximetry 06/28/22 06/28/22 06/28/22 01:05 01:20 02:09 Temperature 98.7 F Pulse Rate Pulse Rate [ 107 H Pulse Oximetery ] Respiratory Rate Blood Pressure Blood Pressure 81/55 83/54 86/57 [Left Arm] O2 Sat by Pulse Oximetry 06/28/22 02:40 Temperature Pulse Rate Pulse Rate [ Pulse Oximetery ] Respiratory Rate Blood Pressure Blood Pressure 79/51 [Left Arm] O2 Sat by Pulse Oximetry - Reevaluation(s) Reevaluation #1: 06/26/22 21:12 Spoke with [facility] for transfer- awaiting callback (Arina Martins) Reevaluation #2: 06/26/22 23:52 Reviewed medical records Patient has not had recurrent seizure at this point Patient informed results and questions are answered (Gold Nolan) Reevaluation #3: 06/27/22 08:28 I was informed by [facility] that the patient would not receive a bed anytime s ooner the recommendation was to admit to this institution awaiting transfer. The patient will be admitted to [facility] I did discuss case with Luis. She'll be admitted for seizure and liver failure awaiting transfer to [facility]. (Kurtis Juan) - Consultations Consultation #1: spoke with [facility], they do accept the patient, looking at a few days for transfer accepted by Dr Espinosa (Gold Nolan) Medical Decision Making - Lab Data Result diagrams: 06/26/22 19:54 06/26/22 19:54 <Arina Martins - Last Filed: 06/26/22 22:26> - Lab Data Result diagrams: 06/26/22 19:54 06/26/22 19:54 <Kurtis Juan - Last Filed: 06/27/22 08:28> - Lab Data Result diagrams: 06/27/22 15:22 06/27/22 15:22 <Gold Nolan - Last Filed: 06/28/22 02:56> - Medical Decision Making Upon arrival patient was placed into room 26. Thorough history and physical exam was performed. Family is aware that we do not have GI services and therefore are agreeable to transfer the patient. Request [facility] as this is where her whipple procedure was performed. I did initiate transfer however still awaiting acceptance to their facility. Patient will be signed out to Dr. Nolan. (Arina Martins) - Lab Data Lab Results 06/26/22 06/26/22 06/26/22 Range/Units 11:00 19:54 19:54 WBC 12.2 H (3.8-10.6) k/uL RBC 2.89 L (3.80-5.40) m/uL Hgb 9.8 L (11.4-16.0) gm/dL Hct 32.8 L (34.0-46.0) % MCV 113.6 H (80.0-100.0) fL MCH 34.0 (25.0-35.0) pg MCHC 30.0 L (31.0-37.0) g/dL RDW 20.8 H (11.5-15.5) % Plt Count 38 L (150-450) k/uL MPV 12.4 Neutrophils % 77 % Lymphocytes % 12 % Monocytes % 7 % Eosinophils % 0 % Basophils % 1 % Neutrophils # 9.4 H (1.3-7.7) k/uL Lymphocytes # 1.5 (1.0-4.8) k/uL Monocytes # 0.8 (0-1.0) k/uL Eosinophils # 0.1 (0-0.7) k/uL Basophils # 0.1 (0-0.2) k/uL Manual Slide Review Performed Polychromasia Present Hypochromasia Marked Poikilocytosis Slight Anisocytosis Moderate Macrocytosis Marked A Sodium 137 (137-145) mmol/L Potassium 3.7 (3.5-5.1) mmol/L Chloride 109 H (98-107) mmol/L Carbon Dioxide 13 L (22-30) mmol/L Anion Gap 15 mmol/L BUN 9 (7-17) mg/dL Creatinine 2.57 H (0.52-1.04) mg/dL Est GFR (CKD-EPI)AfAm 26 (>60 ml/min/1.73 sqM) Est GFR (CKD-EPI)NonAf 22 (>60 ml/min/1.73 sqM) Glucose 81 (74-99) mg/dL Lactic Ac Sepsis Rflx Plasma Lactic Acid David 1.4 (0.7-2.0) mmol/L Calcium 8.2 L (8.4-10.2) mg/dL Magnesium 1.7 (1.6-2.3) mg/dL Total Bilirubin 16.0 H* (0.2-1.3) mg/dL Conjugated Bilirubin 10.7 H (0.0-0.3) mg/dL Unconjugated Bilirubin 1.3 H (0.0-1.1) mg/dL Delta Bilirubin 4.0 H (0.0-0.2) mg/dL AST 73 H (14-36) U/L ALT 22 (4-34) U/L Alkaline Phosphatase 222 H (38-126) U/L Ammonia (<30) umol/L Creatine Kinase 24 L (30-135) U/L Total Protein 5.6 L (6.3-8.2) g/dL Albumin 2.2 L (3.5-5.0) g/dL Urine Color Urine Appearance (Clear) Urine RBC (0-5) /hpf Urine WBC (0-5) /hpf Ur Squamous Epith Cells (0-4) /hpf Urine Bacteria (None) /hpf Urine Yeast (Budding) (None) /hpf Acetaminophen <10.0 ug/mL Coronavirus (PCR) (Not Detectd) 06/26/22 06/26/22 06/26/22 Range/Units 19:54 19:54 20:45 WBC (3.8-10.6) k/uL RBC (3.80-5.40) m/uL Hgb (11.4-16.0) gm/dL Hct (34.0-46.0) % MCV (80.0-100.0) fL MCH (25.0-35.0) pg MCHC (31.0-37.0) g/dL RDW (11.5-15.5) % Plt Count (150-450) k/uL MPV Neutrophils % % Lymphocytes % % Monocytes % % Eosinophils % % Basophils % % Neutrophils # (1.3-7.7) k/uL Lymphocytes # (1.0-4.8) k/uL Monocytes # (0-1.0) k/uL Eosinophils # (0-0.7) k/uL Basophils # (0-0.2) k/uL Manual Slide Review Polychromasia Hypochromasia Poikilocytosis Anisocytosis Macrocytosis Sodium (137-145) mmol/L Potassium (3.5-5.1) mmol/L Chloride (98-107) mmol/L Carbon Dioxide (22-30) mmol/L Anion Gap mmol/L BUN (7-17) mg/dL Creatinine (0.52-1.04) mg/dL Est GFR (CKD-EPI)AfAm (>60 ml/min/1.73 sqM) Est GFR (CKD-EPI)NonAf (>60 ml/min/1.73 sqM) Glucose (74-99) mg/dL Lactic Ac Sepsis Rflx Y Plasma Lactic Acid David 2.2 H* (0.7-2.0) mmol/L Calcium (8.4-10.2) mg/dL Magnesium (1.6-2.3) mg/dL Total Bilirubin (0.2-1.3) mg/dL Conjugated Bilirubin (0.0-0.3) mg/dL Unconjugated Bilirubin (0.0-1.1) mg/dL Delta Bilirubin (0.0-0.2) mg/dL AST (14-36) U/L ALT (4-34) U/L Alkaline Phosphatase (38-126) U/L Ammonia 30 H (<30) umol/L Creatine Kinase (30-135) U/L Total Protein (6.3-8.2) g/dL Albumin (3.5-5.0) g/dL Urine Color Dark Brown Urine Appearance Clear (Clear) Urine RBC 24 H (0-5) /hpf Urine WBC 11 H (0-5) /hpf Ur Squamous Epith Cells 29 H (0-4) /hpf Urine Bacteria Rare H (None) /hpf Urine Yeast (Budding) Occasional H (None) /hpf Acetaminophen ug/mL Coronavirus (PCR) (Not Detectd) 06/26/22 Range/Units 21:27 WBC (3.8-10.6) k/uL RBC (3.80-5.40) m/uL Hgb (11.4-16.0) gm/dL Hct (34.0-46.0) % MCV (80.0-100.0) fL MCH (25.0-35.0) pg MCHC (31.0-37.0) g/dL RDW (11.5-15.5) % Plt Count (150-450) k/uL MPV Neutrophils % % Lymphocytes % % Monocytes % % Eosinophils % % Basophils % % Neutrophils # (1.3-7.7) k/uL Lymphocytes # (1.0-4.8) k/uL Monocytes # (0-1.0) k/uL Eosinophils # (0-0.7) k/uL Basophils # (0-0.2) k/uL Manual Slide Review Polychromasia Hypochromasia Poikilocytosis Anisocytosis Macrocytosis Sodium (137-145) mmol/L Potassium (3.5-5.1) mmol/L Chloride (98-107) mmol/L Carbon Dioxide (22-30) mmol/L Anion Gap mmol/L BUN (7-17) mg/dL Creatinine (0.52-1.04) mg/dL Est GFR (CKD-EPI)AfAm (>60 ml/min/1.73 sqM) Est GFR (CKD-EPI)NonAf (>60 ml/min/1.73 sqM) Glucose (74-99) mg/dL Lactic Ac Sepsis Rflx Plasma Lactic Acid David (0.7-2.0) mmol/L Calcium (8.4-10.2) mg/dL Magnesium (1.6-2.3) mg/dL Total Bilirubin (0.2-1.3) mg/dL Conjugated Bilirubin (0.0-0.3) mg/dL Unconjugated Bilirubin (0.0-1.1) mg/dL Delta Bilirubin (0.0-0.2) mg/dL AST (14-36) U/L ALT (4-34) U/L Alkaline Phosphatase (38-126) U/L Ammonia (<30) umol/L Creatine Kinase (30-135) U/L Total Protein (6.3-8.2) g/dL Albumin (3.5-5.0) g/dL Urine Color Urine Appearance (Clear) Urine RBC (0-5) /hpf Urine WBC (0-5) /hpf Ur Squamous Epith Cells (0-4) /hpf Urine Bacteria (None) /hpf Urine Yeast (Budding) (None) /hpf Acetaminophen ug/mL Coronavirus (PCR) Not Detected (Not Detectd) - EKG Data EKG Comments: EKG demonstrates sinus rhythm with a rate of 85. TN interval 151. QRS 110. QTC of 464. No acute ST segment elevations or depressions (Arina Martins) Disposition Is patient prescribed a controlled substance at d/c from ED?: No <Arina Martins - Last Filed: 06/26/22 22:26> <Kurtis Juan - Last Filed: 06/27/22 08:28> Is patient prescribed a controlled substance at d/c from ED?: No <Gold Nolan - Last Filed: 06/28/22 02:56> Clinical Impression: Chronic liver failure, Seizure, History of alcoholism Disposition: OTHER INSTITUTION NOT DEFINED Condition: Serious
[2022-06-26 21:19] LABS: Appearance,Urine Clear (Clear); Bacteria,Urine Rare /hpf; Budding Yeast,Urine Occasional /hpf; RBC,Urine 24 /hpf (0-5); Squamous Epithelial Cell,Urine 29 /hpf (0-4); WBC,Urine 11 /hpf (0-5)
[2022-06-26 21:20] LABS: Color,Urine Dark Brown
[2022-06-26] MEDS ORDERED: SODIUM CHLORIDE 0.9% 2,000 ML IV STA (23:53)
[2022-06-26] MEDS ORDERED: THIAMINE 100 MG/ML 2 ML VIAL IM STA (23:53)
[2022-06-26] MEDS ORDERED: LORazepam 2 MG/ML INJ IV PRN ×2 (23:53)
[2022-06-27] MEDS: DEXTROSE 5%-0.45% NACL 1,000 ML IV SCH ×2 (02:47→15:27)
[2022-06-27] MEDS: LORazepam 2 MG/ML INJ IV PRN ×2 (03:13→04:30)
[2022-06-27] MEDS: THIAMINE 100 MG TAB PO SCH ×3 (03:46→19:41)
[2022-06-27] MEDS ORDERED: NALOXONE 0.4 MG/ML 1 ML VIAL IV PRN (08:27)
[2022-06-27] MEDS: MULTIVITAMINS, THERA 1 EACH TAB PO SCH (09:12)
[2022-06-27] MEDS ORDERED: ONDANSETRON 4 MG TAB PO PRN (15:09)
[2022-06-27 15:40] LABS: Anisocytosis Moderate; Basophils # (A) 0.1 k/uL (0-0.2); Basophils % (A) 1 %; Eosinophils # (A) 0.1 k/uL (0-0.7); Eosinophils % (A) 1 %; HCT 33.4 % (34.0-46.0); Hypochromasia Marked; Lymphocytes # (A) 1.9 k/uL (1.0-4.8); Lymphocytes % (A) 16 %; MCH 34.2 pg (25.0-35.0); MCHC 29.9 g/dL (31.0-37.0); MCV 114.5 fL (80.0-100.0); Mean Platelet Volume 10.8; Monocytes # (A) 0.8 k/uL (0-1.0); Monocytes % (A) 7 %; Neutrophils # (A) 8.6 k/uL (1.3-7.7); Neutrophils % (A) 73 %; Poikilocytosis Slight; RBC 2.92 m/uL (3.80-5.40); RDW 20.3 % (11.5-15.5); WBC 11.8 k/uL (3.8-10.6)
[2022-06-27] MEDS: IPRATROPIUM-ALBUTEROL 3 ML NEB INHALATION SCH ×2 (15:48→19:43)
[2022-06-27 15:49] LABS: Macrocytosis Marked; Platelet Count 32 k/uL (150-450)
[2022-06-27 15:57] LABS: Albumin 2.1 g/dL (3.5-5.0); Bilirubin, Conjugated 10.7 mg/dL (0.0-0.3); Bilirubin, Delta 3.8 mg/dL (0.0-0.2); Bilirubin,Unconjugated 1.3 mg/dL (0.0-1.1); Magnesium 1.7 mg/dL (1.6-2.3); Potassium 3.4 mmol/L (3.5-5.1)
[2022-06-27 16:09] LABS: Total Bilirubin 15.8 mg/dL (0.2-1.3); Total Protein 5.6 g/dL (6.3-8.2)
--- NOTE | 2022-06-27 16:38 | P.HPIM ---
History of Present Illness H&P Date: 06/27/22 Chief Complaint: Seizure 42-year-old woman with medical history of alcoholic liver cirrhosis, hypertension presented for seizure. Patient is a poor historian due to encephalopathy from liver cirrhosis, history therefore taken from chart review and ER provider signout. From my understanding, patient's last check was 3 weeks ago, she was in a long-term when she was found to have a new onset seizure. She was brought into the hospital was notified that there is no GI s ervice, when patient's family decided to sign the patient out and go to an ER/hospital with GI available resident except transfer. However, upon trying to get the patient into the car, patient had another seizure prompting return to the emergency room. During her hospitalization in the emergency room she's had several seizures. Attempts transfer to [facility] resulted in an accepted admission, but it availability remains limited and it was recommended by the transfer service that patient be admitted to our hospital pending their availability. Patient has no new complaints to me at this time, but again is quite confused. Review of systems was therefore not attempted. Upon my evaluation, patient was afebrile, 109/83, 90% on room air, 78 heart rate. Her labs from today show mild leukocytosis to 11.8 which is improved from 12.2 on admission, anemia to 10.0 which is her baseline, platelets of 32 down from 38 on admission. Chemistries show sodium of 136, 3.4 potassium, bicarb of 13, BUN of 11, creatinine of 2.5. Liver function tests demonstrate total bilirubin 15.8, conjugated bilirubin of 10.7, unconjugated bilirubin of 1.3, AST of 81, ALT 22, alkaline phosphatase of 214, protein of 5.6, albumin of 2.1. Tylenol level on admission was negative. Covid was not detected. Patient's EKG shows sinus rhythm with low QRS voltage. Patient is thus far received 1 mg of Ativan, 5 mg of Valium, 2 L of normal saline, 100 mg of thiamine. See HPI regarding review of systems Gen: in no apparent distress, resting comfortably in bed Eyes: PERRL, no scleral injection or scleral icterus is present HENT: normocephalic, atraumatic, good hearing acuity, moist mucous membranes Neck: no tracheal deviation, full range of motion Resp: good air exchange, breathing comfortably with no accessory muscle use, no tactile fremitus CVS: good distal perfusion x 4, no pitting edema GI: soft, distended, positive ascites : no suprapubic tenderness, no CVAT, goss catheter not present MSK: no clubbing, no cyanosis, no noted contractures of extremities Skin: no noted rashes, petechiae; temperature of skin is appropriate, there is diffuse jaundice present Neuro: moving all extremities without signs of weakness, CN II-XII intact Labs and imaging reviewed as above Assessment/plan: Seizures, likely related to alcohol -Admit to inpatient, telemetry -Ativan when necessary for seizures -Neurology consult -Consideration of EEG, however, likely will not change agent Acute kidney injury superimposed on chronic kidney disease Likely hepatorenal syndrome -Nephrology consult -Avoid nephrotoxins -Consideration of albumin -Continue Lasix, hold spironolactone -Renal/bladder ultrasound Hepatic encephalopathy Decompensated liver cirrhosis, secondary to alcohol Ascites -Ammonia level -Start lactulose -We'll hold off on drainage for now -Ceftriaxone is prophylaxis for SBP Hypertension -Resume home meds Patient is full code DVT prophylaxis with heparin, hold for platelets less than 20 Past Medical History Past Medical History: Hypertension, Skin Disorder Additional Past Medical History / Comment(s): Skin diana, back pain History of Any Multi-Drug Resistant Organisms: None Reported Past Surgical History: No Surgical Hx Reported Past Psychological History: Anxiety, Depression Smoking Status: Former smoker Past Alcohol Use History: Abuse, Heavy Past Drug Use History: Cocaine, Marijuana Medications and Allergies Home Medications Medication Instructions Recorded Confirmed Type Omeprazole 20 mg PO DAILY 10/29/18 06/27/22 History Acyclovir 400 mg PO DAILY@69906/25/22 06/27/22 History Ascorbic Acid [Vitamin C] 500 mg PO DAILY@69906/25/22 06/27/22 History Cholecalciferol [Vitamin D3 (25 50 mcg PO HS 06/25/22 06/27/22 History Mcg = 1000 Iu)] Famotidine [Pepcid] 20 mg PO DAILY@69906/25/22 06/27/22 History Folic Acid 1 mg PO DAILY@69906/25/22 06/27/22 History Furosemide [Lasix] 20 mg PO DAILY 06/25/22 06/27/22 History Ibuprofen [Motrin Ib] 400 mg PO Q6H PRN 06/25/22 06/27/22 History Ipratropium-Albuterol Nebulize 3 ml INHALATION RT-QID 06/25/22 06/27/22 History [Duoneb 0.5 mg-3 mg/3 ml Soln] Levothyroxine Sodium [Synthroid] 75 mcg PO AC-BRKFST@0700 06/25/22 06/27/22 History Metoprolol Tartrate [Lopressor] 12.5 mg PO BID@0700,1600 06/25/22 06/27/22 History Ondansetron [Zofran] 4 mg PO Q6H PRN 06/25/22 06/27/22 History Potassium Chloride [Potassium 10 meq PO DAILY 06/25/22 06/27/22 History Chloride ER] Vitamin B Complex 2 cap PO HS 06/25/22 06/27/22 History oxyCODONE HCL [OxyIR] 5 mg PO Q8H PRN 06/25/22 06/27/22 History Allergies Allergy/AdvReac Type Severity Reaction Status Date / Time amoxicillin [From Augmentin] Allergy Rash/Hives Verified 06/27/22 07:06 clavulanic acid Allergy Rash/Hives Verified 06/27/22 07:06 [From Augmentin] morphine Allergy Unknown Verified 06/27/22 07:06 Penicillins Allergy Unknown Verified 06/27/22 07:06 sulfamethoxazole Allergy Rash/Hives Verified 06/27/22 07:06 [From Bactrim] trimethoprim [From Bactrim] Allergy Rash/Hives Verified 06/27/22 07:06 Physical Exam Osteopathic Statement: *. No significant issues noted on an osteopathic structural exam other than those noted in the History and Physical/Consult. Vitals: Vital Signs Temp Pulse Resp BP Pulse Ox 06/27/22 15:26 97.4 F L 74 16 111/89 98 06/27/22 13:02 78 16 109/83 90 L 06/27/22 11:00 86 18 109/73 97 06/27/22 07:50 85 16 101/75 98 06/27/22 06:17 85 15 103/80 97 06/27/22 01:35 85 16 102/88 100 06/27/22 00:00 97.7 F 84 20 101/71 100 06/26/22 23:00 98.2 F 85 20 109/93 100 06/26/22 20:00 88 20 99/66 97 06/26/22 18:38 97.8 F 91 18 99/76 98 Results CBC & Chem 7: 06/27/22 15:22 06/27/22 15:22 Labs: Abnormal Lab Results - Last 24 Hours (Table) 06/26/22 06/26/22 06/26/22 Range/Units 19:54 19:54 19:54 WBC 12.2 H (3.8-10.6) k/uL RBC 2.89 L (3.80-5.40) m/uL Hgb 9.8 L (11.4-16.0) gm/dL Hct 32.8 L (34.0-46.0) % MCV 113.6 H (80.0-100.0) fL MCHC 30.0 L (31.0-37.0) g/dL RDW 20.8 H (11.5-15.5) % Plt Count 38 L (150-450) k/uL Neutrophils # 9.4 H (1.3-7.7) k/uL Macrocytosis Marked A Sodium (137-145) mmol/L Potassium (3.5-5.1) mmol/L Chloride 109 H (98-107) mmol/L Carbon Dioxide 13 L (22-30) mmol/L Creatinine 2.57 H (0.52-1.04) mg/dL Plasma Lactic Acid David (0.7-2.0) mmol/L Calcium 8.2 L (8.4-10.2) mg/dL Total Bilirubin 16.0 H* (0.2-1.3) mg/dL Conjugated Bilirubin 10.7 H (0.0-0.3) mg/dL Unconjugated Bilirubin 1.3 H (0.0-1.1) mg/dL Delta Bilirubin 4.0 H (0.0-0.2) mg/dL AST 73 H (14-36) U/L Alkaline Phosphatase 222 H (38-126) U/L Ammonia (<30) umol/L Creatine Kinase 24 L (30-135) U/L Total Protein 5.6 L (6.3-8.2) g/dL Albumin 2.2 L (3.5-5.0) g/dL Urine RBC 24 H (0-5) /hpf Urine WBC 11 H (0-5) /hpf Ur Squamous Epith Cells 29 H (0-4) /hpf Urine Bacteria Rare H (None) /hpf Urine Yeast (Budding) Occasional H (None) /hpf 06/26/22 06/27/22 06/27/22 Range/Units 19:54 15:22 15:22 WBC 11.8 H (3.8-10.6) k/uL RBC 2.92 L (3.80-5.40) m/uL Hgb 10.0 L (11.4-16.0) gm/dL Hct 33.4 L (34.0-46.0) % MCV 114.5 H (80.0-100.0) fL MCHC 29.9 L (31.0-37.0) g/dL RDW 20.3 H (11.5-15.5) % Plt Count 32 L (150-450) k/uL Neutrophils # 8.6 H (1.3-7.7) k/uL Macrocytosis Marked A Sodium 136 L (137-145) mmol/L Potassium 3.4 L (3.5-5.1) mmol/L Chloride 111 H (98-107) mmol/L Carbon Dioxide 13 L (22-30) mmol/L Creatinine 2.50 H (0.52-1.04) mg/dL Plasma Lactic Acid David 2.2 H* (0.7-2.0) mmol/L Calcium 8.0 L (8.4-10.2) mg/dL Total Bilirubin 15.8 H* (0.2-1.3) mg/dL Conjugated Bilirubin 10.7 H (0.0-0.3) mg/dL Unconjugated Bilirubin 1.3 H (0.0-1.1) mg/dL Delta Bilirubin 3.8 H (0.0-0.2) mg/dL AST 81 H (14-36) U/L Alkaline Phosphatase 214 H (38-126) U/L Ammonia 30 H (<30) umol/L Creatine Kinase (30-135) U/L Total Protein 5.6 L (6.3-8.2) g/dL Albumin 2.1 L (3.5-5.0) g/dL Urine RBC (0-5) /hpf Urine WBC (0-5) /hpf Ur Squamous Epith Cells (0-4) /hpf Urine Bacteria (None) /hpf Urine Yeast (Budding) (None) /hpf Microbiology - Last 24 Hours (Table) 06/26/22 19:54 Urine Culture - Preliminary Urine,Clean Catch
[2022-06-27] MEDS: LACTULOSE 20 GM/30 ML CUP PO SCH ×2 (19:41→22:23)
[2022-06-27] MEDS: METOPROLOL TARTRATE 12.5 MG TAB PO SCH (19:41)
--- NOTE | 2022-06-27 20:01 | US ---
EXAMINATION TYPE: US kidneys/renal and bladder DATE OF EXAM: 06/27/2022 COMPARISON: MR liver 05/15/2016. CLINICAL HISTORY: ARLENE/hepatorenal syndrome. EXAM MEASUREMENTS: Right Kidney: 9.6x4.7x5.7 cm Left Kidney: 8.4x4.8x3.2 cm Best images possible due to patients ability and overlying bowel gas Right Kidney: Obscured by overlying bowel gas. Limited portions visualized appear within normal limi ts Left Kidney: Obscured by overlying bowel gas Measurements obtained are size disproportional when comp ared to right kidney. May be due to limited field of view. Bladder: wnl Bilateral Jets seen: No Ascites present IMPRESSION: 1. No evidence for hydronephrosis in this limited exam. 2. Ascites.
[2022-06-27] MEDS ORDERED: NON FORMULARY DRUG (Vitamin B Complex [Vitamin B Complex] 1 EACH Capsule) PO SCH (21:00)
[2022-06-27] MEDS ORDERED: CHOLECALCIFEROL 25 MCG (1000 IU) TABLET PO SCH (21:00)
--- NOTE | 2022-06-27 21:11 | P.CNNES ---
History of Present Illness Consult date: 06/27/22 Requesting physician: Kurtis Juan Reason for Consult: Seizure History of Present Illness: Patient is a 42-year-old female, with history of alcoholism, hepatic cirrhosis, was brought to the hospital by ambulance for seizure at [facility]. Patient is severely encephalopathic, not able to provide any history. I spoke to patient's brother and [id number], who provided with a history. Patient has long-standing history of alcoholism and also remote history of some substance abuse. Patient has developed hepatic cirrhosis. Patient's family could not tell how much she used to drink, as she usually hides it. She has alcoholism for 20+ years. Her last drink was about 3 weeks ago. Patient last week suffere d from a fall at home for which she was admitted to [facility]. She was discharged to [facility]. She had her first seizure on 06/25/2022. Patient was brought to [facility]. She was noted to have tongue bite from the seizure. She was unresponsive in the ER but did wake up. It was felt patient has either seizure versus syncope. Patient recovered back to baseline. It was recommended by the ED physician to be transferred to [facility], as she has all her care provided in the past at [facility]. Patient's ammonia was elevated, and she was given lactulose. Patient was discharged to follow-up with GI specialist at [facility]. She was sent back to [facility]. Apparently patient's brother was taking her to [facility] for GI evaluation, when patient had a second seizure in the parking lot at [facility] yesterday evening and she was brought to the hospital by ambulance at 6:37 PM. Her vitals in the scene was blood pressure 90/71, pulse rate 80, respiration 18 and saturation 95% and blood glucose 15. It was described as a full body con vulsion. Patient bit her tongue. She uses depends, therefore does not know if she had loss of control of urine. EKG shows sinus rhythm. Abdominal ultrasound showed no evidence of hydronephrosis. Ascites. Patient at present appears postictal, versus encephalopathic from hepatic failure. Patient's blood test shows WBC 12.2, hemoglobin 9.8 with elevated MCV 113.6. Platelets are very low 38,000. Electrolytes are normal, BUN 9, creatinine 2.57. AST 73, ALT 22 ammonia was 30. Bilirubin is highly elevated 16.0 with conjugated bilirubin 10.7 and and conjugated 1.3. Wallace virus PCR negative. Patient's repeat ammonia level as of this morning is 65. Patient's CT head from 06/26/2022 shows mild cerebral atrophy and chronic small vessel ischemic change. Small to tiny chronic subdural hygromas superiorly are noted. I personally reviewed CT head, agree with the findings. She has been using walker for last 4 months, as she was not feeling able to walk steadily. This has got worse the last 1 month and she has been using wheelchair. In the last 2 weeks she has not walked at all. She also complains of dizzy spells and has been having falls. Review of Systems Patient that he encephalopathic. Not able to provide any history or review of systems. ROS unobtainable: due to mental status Past Medical History Past Medical History: Hypertension, Skin Disorder Additional Past Medical History / Comment(s): Skin diana, back pain History of Any Multi-Drug Resistant Organisms: None Reported Past Surgical History: No Surgical Hx Reported Past Psychological History: Anxiety, Depression Smoking Status: Former smoker Past Alcohol Use History: Abuse, Heavy Past Drug Use History: Cocaine, Marijuana - Past Family History Father Family Medical History: Hypertension Mother Family Medical History: Hypertension Medications and Allergies Home Medications Medication Instructions Recorded Confirmed Type Omeprazole 20 mg PO DAILY 10/29/18 06/27/22 History Acyclovir 400 mg PO DAILY@69906/25/22 06/27/22 History Ascorbic Acid [Vitamin C] 500 mg PO DAILY@69906/25/22 06/27/22 History Cholecalciferol [Vitamin D3 (25 50 mcg PO HS 06/25/22 06/27/22 History Mcg = 1000 Iu)] Famotidine [Pepcid] 20 mg PO DAILY@69906/25/22 06/27/22 History Folic Acid 1 mg PO DAILY@69906/25/22 06/27/22 History Furosemide [Lasix] 20 mg PO DAILY 06/25/22 06/27/22 History Ibuprofen [Motrin Ib] 400 mg PO Q6H PRN 06/25/22 06/27/22 History Ipratropium-Albuterol Nebulize 3 ml INHALATION RT-QID 06/25/22 06/27/22 History [Duoneb 0.5 mg-3 mg/3 ml Soln] Levothyroxine Sodium [Synthroid] 75 mcg PO AC-BRKFST@0700 06/25/22 06/27/22 History Metoprolol Tartrate [Lopressor] 12.5 mg PO BID@0700,1600 06/25/22 06/27/22 History Ondansetron [Zofran] 4 mg PO Q6H PRN 06/25/22 06/27/22 History Potassium Chloride [Potassium 10 meq PO DAILY 06/25/22 06/27/22 History Chloride ER] Vitamin B Complex 2 cap PO HS 06/25/22 06/27/22 History oxyCODONE HCL [OxyIR] 5 mg PO Q8H PRN 06/25/22 06/27/22 History Allergies Allergy/AdvReac Type Severity Reaction Status Date / Time amoxicillin [From Augmentin] Allergy Rash/Hives Verified 06/27/22 07:06 clavulanic acid Allergy Rash/Hives Verified 06/27/22 07:06 [From Augmentin] morphine Allergy Unknown Verified 06/27/22 07:06 Penicillins Allergy Unknown Verified 06/27/22 07:06 sulfamethoxazole Allergy Rash/Hives Verified 06/27/22 07:06 [From Bactrim] trimethoprim [From Bactrim] Allergy Rash/Hives Verified 06/27/22 07:06 Physical Examination - Vital Signs Vital Signs: Vital Signs Temp Pulse Resp BP Pulse Ox 06/27/22 20:09 89 06/27/22 19:50 82 06/27/22 15:26 97.4 F L 74 16 111/89 98 06/27/22 13:02 78 16 109/83 90 L 06/27/22 11:00 86 18 109/73 97 06/27/22 07:50 85 16 101/75 98 06/27/22 06:17 85 15 103/80 97 06/27/22 01:35 85 16 102/88 100 06/27/22 00:00 97.7 F 84 20 101/71 100 06/26/22 23:00 98.2 F 85 20 109/93 100 Patient is a middle aged female, who appears somewhat in mild distress. Patient is very encephalopathic, appears jaundiced. Patient has evidence of oral trauma, with dried up blood by her lips. Speech is hoarse and language functions are normal. No obvious aphasia or dysarthria. Attention, concentration and fund of knowledge is quite limited. On cranial nerve examination, pupils are equal, round and reacting to light, visual graves appears full with no neglect on double simultaneous stimulation. Extraocular muscles are intact with no nystagmus. Face is symmetric. Patient did not protrude her tongue. Lower cranial nerves could not be tested. On muscle strength testing, patient did not cooperate with the testing. Everything was hurting. Patient holds her arms up but then rapidly brings it down. Deep tendon reflexes are symmetric 1+ to 2+, and plantars are upgoing bilaterally. Sensory and cerebellar functions cannot be assessed. Gait deferred.. On general examination, there is no carotid bruit or murmur, S1-S2 audible. Chest is clear on consultation. Abdomen is very protuberant. Patient has obvious ascites. Underlying organomegaly cannot be assessed. Patient has at least moderate peripheral edema. Patient appears very pale and jaundiced. Some scabs are seen. Results - Laboratory Findings CBC and BMP: 06/27/22 15:22 06/28/22 08:30 Abnormal Lab Findings: Abnormal Labs 06/26/22 06/26/22 06/26/22 19:54 19:54 19:54 WBC 12.2 H RBC 2.89 L Hgb 9.8 L Hct 32.8 L MCV 113.6 H MCHC 30.0 L RDW 20.8 H Plt Count 38 L Neutrophils # 9.4 H Macrocytosis Marked A Sodium Potassium Chloride 109 H Carbon Dioxide 13 L Creatinine 2.57 H Plasma Lactic Acid David Calcium 8.2 L Total Bilirubin 16.0 H* Conjugated Bilirubin 10.7 H Unconjugated Bilirubin 1.3 H Delta Bilirubin 4.0 H AST 73 H Alkaline Phosphatase 222 H Ammonia Creatine Kinase 24 L Total Protein 5.6 L Albumin 2.2 L Urine RBC 24 H Urine WBC 11 H Ur Squamous Epith Cells 29 H Urine Bacteria Rare H Urine Yeast (Budding) Occasional H 06/26/22 06/27/22 06/27/22 19:54 15:22 15:22 WBC 11.8 H RBC 2.92 L Hgb 10.0 L Hct 33.4 L MCV 114.5 H MCHC 29.9 L RDW 20.3 H Plt Count 32 L Neutrophils # 8.6 H Macrocytosis Marked A Sodium 136 L Potassium 3.4 L Chloride 111 H Carbon Dioxide 13 L Creatinine 2.50 H Plasma Lactic Acid David 2.2 H* Calcium 8.0 L Total Bilirubin 15.8 H* Conjugated Bilirubin 10.7 H Unconjugated Bilirubin 1.3 H Delta Bilirubin 3.8 H AST 81 H Alkaline Phosphatase 214 H Ammonia 30 H Creatine Kinase Total Protein 5.6 L Albumin 2.1 L Urine RBC Urine WBC Ur Squamous Epith Cells Urine Bacteria Urine Yeast (Budding) 06/27/22 17:12 WBC RBC Hgb Hct MCV MCHC RDW Plt Count Neutrophils # Macrocytosis Sodium Potassium Chloride Carbon Dioxide Creatinine Plasma Lactic Acid David Calcium Total Bilirubin Conjugated Bilirubin Unconjugated Bilirubin Delta Bilirubin AST Alkaline Phosphatase Ammonia 65 H Creatine Kinase Total Protein Albumin Urine RBC Urine WBC Ur Squamous Epith Cells Urine Bacteria Urine Yeast (Budding) Assessment and Plan Assessment: * New onset seizure, perhaps related to alcohol withdrawal. * Acute kidney injury, probable hepatorenal syndrome * Hepatic encephalopathy, with advanced liver cirrhosis. * Chronic alcoholism * History of substance abuse * Hypertension Plan: * EEG was performed today. It was abnormal EEG due to background slowing of at least moderate degree. This is suggestive of generalized cerebral dysfunction as can be seen with toxic metabolic encephalopathy or related to diffuse structural brain abnormality. Clinical correlation is recommended. No epileptiform activity was seen. * Patient had 2 grand mal seizures in 24 hours. Start Keppra 500 mg IV once daily for seizure prophylaxis (adjusted to renal and liver disease). * Neurology will follow clinically. * Discussed with family members.
[2022-06-27] MEDS ORDERED: levETIRAcetam IV 500 MG in SODIUM CHLORIDE 0.9% 100 ML IVPB SCH (21:15)
[2022-06-27] MEDS: levETIRAcetam IV 500 MG in SODIUM CHLORIDE 0.9% 100 ML IVPB SCH (22:24)
[2022-06-28] MEDS: ALBUMIN HUMAN 25% 50 ML in EMPTY BAG 1 BAG IVPB SCH ×8 (00:12→03:24)
[2022-06-28] MEDS ORDERED: LORazepam 1 MG/0.5 ML VIAL IV PRN ×3 (00:23→00:27)
[2022-06-28] MEDS ORDERED: LORazepam 2 MG/ML INJ IV PRN ×2 (00:26→14:44)
[2022-06-28] MEDS ORDERED: LACTATED RINGERS 1,000 ML IV SCH (01:00)
[2022-06-28] MEDS: HEPARIN SODIUM,PORCINE/PF 5,000 UNIT/0.5 ML SYRINGE SQ SCH ×2 (01:08→09:16)
[2022-06-28] MEDS ORDERED: MEROPENEM 1 GM in SODIUM CHLORIDE 0.9% 100 ML IVPB SCH (03:00)
[2022-06-28 03:51] LABS: Appearance,Urine Cloudy (Clear); Bacteria,Urine Many /hpf; Bilirubin,Urine 3+ (Negative); Blood,Urine Small (Negative); Budding Yeast,Urine Many /hpf; Color,Urine Dark Brown; Glucose,Urine (UA) Negative (Negative); Hyaline Casts,Urine 4 /lpf (0-2); Ketones,Urine Negative (Negative); Leukocyte Esterase,Urine Large (Negative); Mucus,Urine Rare /hpf; Nitrite,Urine Negative (Negative); PH, Urine 5.5 (5.0-8.0); Protein,Urine Trace (Negative); RBC,Urine 4 /hpf (0-5); Specific Gravity,Urine 1.014 (1.001-1.035); Squamous Epithelial Cell,Urine 8 /hpf (0-4); Urobilinogen,Urine <2.0 mg/dL (<2.0); WBC,Urine 35 /hpf (0-5)
[2022-06-28] MEDS ORDERED: MELATONIN 5 MG TABLET PO SCH (04:30)
--- NOTE | 2022-06-28 04:33 | EEG ---
ELECTROENCEPHALOGRAM REPORT PREAMBLE: This is a 42-year-old female with hepatic cirrhosis, has new onset seizure. EEG FINDINGS: This is a 21-channel digital EEG recorded with video component, utilizing 10/20 international system with referential and bipolar montages. Background consists of moderately well-developed, poorly regulated, diffuse slowing in moderate amplitude theta and some delta activity seen in bihemispheric region. The study is technically limited because of significant 60 cycle hertz interference during the study. Different stages of sleep were not seen. Background does not seem to be reactive to eye opening or closing. No focal or generalized epileptiform activity was seen. IMPRESSION: This is an abnormal EEG due to background slowing of at least moderate degree. This is suggestive of generalized cerebral dysfunction as can be seen with toxic metabolic encephalopathy or related to diffuse structural brain abnormality. No epileptiform activity was seen. MMODL / IJN: [id number] /
[2022-06-28] MEDS ORDERED: ACYCLOVIR 200 MG CAP PO SCH (07:00)
[2022-06-28] MEDS ORDERED: ASCORBIC ACID 500 MG TAB PO SCH (07:00)
[2022-06-28] MEDS ORDERED: FAMOTIDINE 20 MG TAB PO SCH (07:00)
[2022-06-28] MEDS ORDERED: FOLIC ACID 1 MG TAB PO SCH (07:00)
[2022-06-28] MEDS ORDERED: LEVOTHYROXINE 75 MCG TAB PO SCH (07:00)
[2022-06-28] MEDS: IPRATROPIUM-ALBUTEROL 3 ML NEB INHALATION SCH ×3 (07:17→16:05)
[2022-06-28] MEDS ORDERED: PANTOPRAZOLE 40 MG TABLET PO SCH (07:30)
--- NOTE | 2022-06-28 08:46 | P.NPCON ---
History of Present Illness - Reason for Consult Consult date: 06/28/22 acute renal failure - Chief Complaint HRS - History of Present Illness This is a 42-year-old female seen in consultation because of acute kidney injury in a patient with alcoholic's liver disease with cirrhosis and hepatic encephalopathy. She came in because of new onset seizures. Patient is fairly L deeply jaundiced. Unable to give any history. There in the hospital she was hypotensive with blood pressure in the 70s to 80s systolic and heart rate in the 100. She is afebrile. 24-hour urine is not documented there is a few cc of urine in her Duque catheter bag Past Medical History Past Medical History: Hypertension, Skin Disorder Additional Past Medical History / Comment(s): Skin diana, back pain vertebrae fractures from past fall History of Any Multi-Drug Resistant Organisms: None Reported Past Surgical History: No Surgical Hx Reported Past Psychological History: Anxiety, Depression Smoking Status: Former smoker Past Alcohol Use History: Abuse, Heavy Past Drug Use History: Cocaine, Marijuana - Past Family History Father Family Medical History: Hypertension Mother Family Medical History: Hypertension Medications and Allergies Home Medications Medication Instructions Recorded Confirmed Type Omeprazole 20 mg PO DAILY 10/29/18 06/27/22 History Acyclovir 400 mg PO DAILY@69906/25/22 06/27/22 History Ascorbic Acid [Vitamin C] 500 mg PO DAILY@69906/25/22 06/27/22 History Cholecalciferol [Vitamin D3 (25 50 mcg PO HS 06/25/22 06/27/22 History Mcg = 1000 Iu)] Famotidine [Pepcid] 20 mg PO DAILY@69906/25/22 06/27/22 History Folic Acid 1 mg PO DAILY@69906/25/22 06/27/22 History Furosemide [Lasix] 20 mg PO DAILY 06/25/22 06/27/22 History Ibuprofen [Motrin Ib] 400 mg PO Q6H PRN 06/25/22 06/27/22 History Ipratropium-Albuterol Nebulize 3 ml INHALATION RT-QID 06/25/22 06/27/22 History [Duoneb 0.5 mg-3 mg/3 ml Soln] Levothyroxine Sodium [Synthroid] 75 mcg PO AC-BRKFST@69906/25/22 06/27/22 History Metoprolol Tartrate [Lopressor] 12.5 mg PO BID@0700,1600 06/25/22 06/27/22 History Ondansetron [Zofran] 4 mg PO Q6H PRN 06/25/22 06/27/22 History Potassium Chloride [Potassium 10 meq PO DAILY 06/25/22 06/27/22 History Chloride ER] Vitamin B Complex 2 cap PO HS 06/25/22 06/27/22 History oxyCODONE HCL [OxyIR] 5 mg PO Q8H PRN 06/25/22 06/27/22 History Allergies Allergy/AdvReac Type Severity Reaction Status Date / Time amoxicillin [From Augmentin] Allergy Rash/Hives Verified 06/27/22 07:06 clavulanic acid Allergy Rash/Hives Verified 06/27/22 07:06 [From Augmentin] morphine Allergy Unknown Verified 06/27/22 07:06 Penicillins Allergy Unknown Verified 06/27/22 07:06 sulfamethoxazole Allergy Rash/Hives Verified 06/27/22 07:06 [From Bactrim] trimethoprim [From Bactrim] Allergy Rash/Hives Verified 06/27/22 07:06 Physical Exam Vitals: Vital Signs Temp Pulse Pulse Resp BP BP Pulse Ox 06/28/22 07:27 105 H 06/28/22 07:17 101 H 06/28/22 03:30 98.3 F 103 H 18 89/56 93 L 06/28/22 02:40 79/51 06/28/22 02:09 98.7 F 107 H 86/57 06/28/22 01:20 83/54 06/28/22 01:05 81/55 06/28/22 01:00 82/53 06/27/22 23:55 94.9 F L 88 18 69/48 95 06/27/22 21:55 94.8 F L 86 18 84/56 98 06/27/22 20:09 89 06/27/22 19:50 82 06/27/22 15:26 97.4 F L 74 16 111/89 98 06/27/22 13:02 78 16 109/83 90 L 06/27/22 11:00 86 18 109/73 97 Intake and Output 06/27/22 06/28/22 06/28/22 22:59 06:59 14:59 Other: Weight 72.575 kg On examination she is awake alert deeply jaundiced confused HEENT exam no facial asymmetry neck is supple Lungs are clear to auscultation but poor air entry and poor inspiratory effort Heart sounds unremarkable for any murmur rub gallop Abdomen mildly distended not tight. Extreme exam was moderate edema tends shiny skin Neurologically awake alert us to follow some commands but confused and disoriented. No focal motor deficit Results - Lab Results Most recent lab results Calcium 8.0 mg/dL (8.4-10.2) L 06/27/22 15:22 Magnesium 1.7 mg/dL (1.6-2.3) 06/27/22 15:22 06/27/22 15:22 06/27/22 15: Assessment and Plan Assessment: Impression 1. Acute kidney injury possibly and likely hepatorenal syndrome. Blood pressure is low could be just prerenal. 2. Liver cirrhosis with ascites. Hepatic encephalopathy. 3. Unlikely to be compartment syndrome because ascites and secondary type IV. Severe non-gap and mild gap acidosis with bicarb of 13 and a gap of 15. Rule out methanol ingestion. The gap is small therefore unlikely. The non-gap acidosis could be from diarrhea but I'm not able to take any significant history of that. 5. Mildly Hypokalemia from poor intake. 6. Mild degree of hyponatremia secondary to acute kidney injury. 7. Anemia from multiple reasons including possible iron deficiency.. Recommendation 1. IV half-normal saline with 100 mEq of bicarb at 100 and hour. 2. Will treat as hepatorenal syndrome with a cocktail, includes Midrin, octreotide, IV albumin infusions. 3. Check serum methanol level acetone level. Stat 4. Check serumosmolality stat. 5. Check comprehensive metabolic panel stat today. 6. Stop the Lasix Prognosis very guarded. Thank you for this consultation and will continue to follow closely
[2022-06-28] MEDS ORDERED: FUROSEMIDE 20 MG TAB PO SCH (09:00)
[2022-06-28] MEDS ORDERED: ALBUMIN HUMAN 25% 50 ML in EMPTY BAG 1 BAG IVPB SCH (09:00)
[2022-06-28] MEDS ORDERED: POTASSIUM CHLORIDE ER 10 MEQ TAB.ER.PRT PO SCH (09:00)
[2022-06-28] MEDS ORDERED: OCTREOTIDE 200 MCG/ML 5 ML VIAL SQ SCH (09:00)
[2022-06-28] MEDS: DEXTROSE 5%-0.45% NACL 1,000 ML IV SCH (09:13)
[2022-06-28] MEDS: METOPROLOL TARTRATE 12.5 MG TAB PO SCH (09:15)
[2022-06-28 09:18] LABS: ALT 15 U/L (4-34); AST 56 U/L (14-36); African American GFR (CKD) 27 (>60 ml/min/1.73 sqM); Alkaline Phosphatase 136 U/L (38-126); Anion Gap 15 mmol/L; Bilirubin, Delta 2.2 mg/dL (0.0-0.2); Bilirubin,Unconjugated 1.8 mg/dL (0.0-1.1); Blood Urea Nitrogen 10 mg/dL (7-17); Calcium 8.1 mg/dL (8.4-10.2); Carbon Dioxide 13 mmol/L (22-30); Chloride 110 mmol/L (98-107); Glucose 90 mg/dL (74-99); Magnesium 1.5 mg/dL (1.6-2.3); Non-African American GFR(CKD) 24 (>60 ml/min/1.73 sqM); Potassium 3.2 mmol/L (3.5-5.1); Sodium 138 mmol/L (137-145); Total Protein 5.6 g/dL (6.3-8.2)
[2022-06-28 09:24] LABS: Anisocytosis Moderate; Basophils # (A) 0.1 k/uL (0-0.2); Basophils % (A) 1 %; Eosinophils # (A) 0.1 k/uL (0-0.7); Eosinophils % (A) 1 %; HCT 23.2 % (34.0-46.0); Hypochromasia Marked; Lymphocytes # (A) 1.3 k/uL (1.0-4.8); Lymphocytes % (A) 12 %; MCH 34.5 pg (25.0-35.0); MCHC 30.5 g/dL (31.0-37.0); MCV 113.2 fL (80.0-100.0); Macrocytosis Marked; Mean Platelet Volume 13.5; Monocytes # (A) 0.7 k/uL (0-1.0); Monocytes % (A) 7 %; Neutrophils # (A) 8.3 k/uL (1.3-7.7); Neutrophils % (A) 78 %; Poikilocytosis Slight; RBC 2.05 m/uL (3.80-5.40); RDW 21.2 % (11.5-15.5); WBC 10.8 k/uL (3.8-10.6)
[2022-06-28] MEDS: LACTULOSE 20 GM/30 ML CUP PO SCH ×4 (09:25→21:52)
[2022-06-28] MEDS: THIAMINE 100 MG TAB PO SCH (09:28)
[2022-06-28] MEDS: MULTIVITAMINS, THERA 1 EACH TAB PO SCH (09:29)
[2022-06-28 09:58] LABS: HGB 7.1 gm/dL (11.4-16.0); Platelet Count 29 k/uL (150-450)
[2022-06-28] MEDS: SODIUM CHLORIDE 0.45% 1,000 ML with SODIUM BICARB (1 MEQ/ML) 100 ML IV SCH ×4 (10:57→21:51)
[2022-06-28] MEDS ORDERED: Potassium Replacement Protocol 1 EACH MISC MISCELLANE PRN (11:10)
[2022-06-28 11:11] LABS: Large Platelets Present
[2022-06-28 11:12] LABS: Target Cells Present
[2022-06-28 11:36] VITALS: TEMP 96.3
[2022-06-28] MEDS ORDERED: MIDODRINE 5 MG TAB PO SCH (12:30)
[2022-06-28 13:06] LABS: Anisocytosis Moderate; Basophils # (A) 0.1 k/uL (0-0.2); Basophils % (A) 1 %; Eosinophils # (A) 0.1 k/uL (0-0.7); Eosinophils % (A) 1 %; HCT 25.5 % (34.0-46.0); HGB 7.8 gm/dL (11.4-16.0); Hypochromasia Marked; Lymphocytes # (A) 1.7 k/uL (1.0-4.8); Lymphocytes % (A) 14 %; MCH 34.8 pg (25.0-35.0); MCHC 30.7 g/dL (31.0-37.0); MCV 113.5 fL (80.0-100.0); Macrocytosis Marked; Mean Platelet Volume 11.3; Monocytes # (A) 0.8 k/uL (0-1.0); Monocytes % (A) 7 %; Neutrophils # (A) 8.8 k/uL (1.3-7.7); Neutrophils % (A) 75 %; Poikilocytosis Slight; RBC 2.24 m/uL (3.80-5.40); RDW 21.1 % (11.5-15.5); WBC 11.7 k/uL (3.8-10.6)
[2022-06-28 13:07] LABS: Platelet Count 30 k/uL (150-450)
--- NOTE | 2022-06-28 13:22 | P.PN ---
Subjective Progress Note Date: 06/28/22 Patient had a team called overnight due to low blood pressures, increased confusion. Patient was started on meropenem and given multiple boluses of albumin. Today, she remains quite confused, blood pressures are challenging to keep up despite multiple abdomen pushes, Midodrin, somatostatin. Gen: in no apparent distress, resting comfortably in bed Eyes: PERRL, no scleral injection or scleral icterus is present HENT: normocephalic, atraumatic, good hearing acuity, moist mucous membranes Neck: no tracheal deviation, full range of motion Resp: good air exchange, breathing comfortably with no accessory muscle use, no tactile fremitus CVS: good distal perfusion x 4, no pitting edema GI: soft, distended, positive ascites : no suprapubic tenderness, no CVAT, goss catheter not present MSK: no clubbing, no cyanosis, no noted contractures of extremities Skin: no noted rashes, petechiae; temperature of skin is appropriate, there is diffuse jaundice present Neuro: moving all extremities without signs of weakness, CN II-XII intact Labs and imaging reviewed as above Assessment/plan: Seizures, likely related to alcohol -Admit to inpatient, telemetry -Ativan when necessary for seizures -Neurology consult -Consideration of EEG, however, 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 Patient is full code DVT prophylaxis with heparin, hold for platelets less than 20 Objective - Vital Signs Vital signs: Vital Signs Temp 96.3 F L 06/28/22 11:35 Pulse 102 H 06/28/22 12:27 Resp 16 06/28/22 11:35 BP 90/59 06/28/22 11:35 Pulse Ox 96 06/28/22 11:35 FiO2 Intake & Output 06/27/22 06/28/22 06/28/22 18:59 06:59 18:59 Weight 72.575 kg Other: Voiding Method Indwelling Catheter - Labs CBC & Chem 7: 06/28/22 12:22 06/28/22 08:30 Labs: Abnormal Lab Results - Last 24 Hours (Table) 06/27/22 06/27/22 06/27/22 Range/Units 15:22 15: 17:12 WBC 11.8 H (3.8-10.6) k/uL RBC 2.92 L (3.80-5.40) m/uL Hgb 10.0 L (11.4-16.0) gm/dL Hct 33.4 L (34.0-46.0) % MCV 114.5 H (80.0-100.0) fL MCHC 29.9 L (31.0-37.0) g/dL RDW 20.3 H (11.5-15.5) % Plt Count 32 L (150-450) k/uL Neutrophils # 8.6 H (1.3-7.7) k/uL Macrocytosis Marked A Sodium 136 L (137-145) mmol/L Potassium 3.4 L (3.5-5.1) mmol/L Chloride 111 H (98-107) mmol/L Carbon Dioxide 13 L (22-30) mmol/L Creatinine 2.50 H (0.52-1.04) mg/dL Calcium 8.0 L (8.4-10.2) mg/dL Magnesium (1.6-2.3) mg/dL Total Bilirubin 15.8 H* (0.2-1.3) mg/dL Conjugated Bilirubin 10.7 H (0.0-0.3) mg/dL Unconjugated Bilirubin 1.3 H (0.0-1.1) mg/dL Delta Bilirubin 3.8 H (0.0-0.2) mg/dL AST 81 H (14-36) U/L Alkaline Phosphatase 214 H (38-126) U/L Ammonia 65 H (<30) umol/L Total Protein 5.6 L (6.3-8.2) g/dL Albumin 2.1 L (3.5-5.0) g/dL Urine Appearance (Clear) Urine Protein (Negative) Urine Blood (Negative) Urine Bilirubin (Negative) Ur Leukocyte Esterase (Negative) Urine WBC (0-5) /hpf Ur Squamous Epith Cells (0-4) /hpf Urine Bacteria (None) /hpf Hyaline Casts (0-2) /lpf Urine Mucus (None) /hpf Urine Yeast (Budding) (None) /hpf 06/28/22 06/28/22 06/28/22 Range/Units 03:15 07:18 08:30 WBC 10.8 H (3.8-10.6) k/uL RBC 2.05 L (3.80-5.40) m/uL Hgb 7.1 L D (11.4-16.0) gm/dL Hct 23.2 L (34.0-46.0) % MCV 113.2 H (80.0-100.0) fL MCHC 30.5 L (31.0-37.0) g/dL RDW 21.2 H (11.5-15.5) % Plt Count 29 L (150-450) k/uL Neutrophils # 8.3 H (1.3-7.7) k/uL Macrocytosis Marked A Sodium (137-145) mmol/L Potassium 3.2 L (3.5-5.1) mmol/L Chloride 110 H (98-107) mmol/L Carbon Dioxide 13 L (22-30) mmol/L Creatinine 2.44 H (0.52-1.04) mg/dL Calcium 8.1 L (8.4-10.2) mg/dL Magnesium 1.5 L (1.6-2.3) mg/dL Total Bilirubin 16.0 H* (0.2-1.3) mg/dL Conjugated Bilirubin 12.0 H (0.0-0.3) mg/dL Unconjugated Bilirubin 1.8 H (0.0-1.1) mg/dL Delta Bilirubin 2.2 H (0.0-0.2) mg/dL AST 56 H (14-36) U/L Alkaline Phosphatase 136 H (38-126) U/L Ammonia (<30) umol/L Total Protein 5.6 L (6.3-8.2) g/dL Albumin 3.0 L (3.5-5.0) g/dL Urine Appearance Cloudy H (Clear) Urine Protein Trace H (Negative) Urine Blood Small H (Negative) Urine Bilirubin 3+ H (Negative) Ur Leukocyte Esterase Large H (Negative) Urine WBC 35 H (0-5) /hpf Ur Squamous Epith Cells 8 H (0-4) /hpf Urine Bacteria Many H (None) /hpf Hyaline Casts 4 H (0-2) /lpf Urine Mucus Rare H (None) /hpf Urine Yeast (Budding) Many H (None) /hpf 06/28/22 Range/Units 12:22 WBC 11.7 H (3.8-10.6) k/uL RBC 2.24 L (3.80-5.40) m/uL Hgb 7.8 L (11.4-16.0) gm/dL Hct 25.5 L (34.0-46.0) % MCV 113.5 H (80.0-100.0) fL MCHC 30.7 L (31.0-37.0) g/dL RDW 21.1 H (11.5-15.5) % Plt Count 30 L (150-450) k/uL Neutrophils # 8.8 H (1.3-7.7) k/uL Macrocytosis Marked A Sodium (137-145) mmol/L Potassium (3.5-5.1) mmol/L Chloride (98-107) mmol/L Carbon Dioxide (22-30) mmol/L Creatinine (0.52-1.04) mg/dL Calcium (8.4-10.2) mg/dL Magnesium (1.6-2.3) mg/dL Total Bilirubin (0.2-1.3) mg/dL Conjugated Bilirubin (0.0-0.3) mg/dL Unconjugated Bilirubin (0.0-1.1) mg/dL Delta Bilirubin (0.0-0.2) mg/dL AST (14-36) U/L Alkaline Phosphatase (38-126) U/L Ammonia (<30) umol/L Total Protein (6.3-8.2) g/dL Albumin (3.5-5.0) g/dL Urine Appearance (Clear) Urine Protein (Negative) Urine Blood (Negative) Urine Bilirubin (Negative) Ur Leukocyte Esterase (Negative) Urine WBC (0-5) /hpf Ur Squamous Epith Cells (0-4) /hpf Urine Bacteria (None) /hpf Hyaline Casts (0-2) /lpf Urine Mucus (None) /hpf Urine Yeast (Budding) (None) /hpf Microbiology - Last 24 Hours (Table) 06/28/22 03:15 Urine Culture - Preliminary Urine,Voided 06/26/22 19:54 Urine Culture - Final Urine,Clean Catch
[2022-06-28 13:28] LABS: Prothrombin Time 19.9 sec (9.0-12.0)
[2022-06-28 13:35] LABS: Partial Thromboplastin Time >200.0 sec (22.0-30.0)
[2022-06-28] MEDS: POTASSIUM CHLORIDE 20 MEQ in WATER FOR INJECTION 1 100ML.BAG IVPB SCH (14:42)
[2022-06-28] MEDS ORDERED: ATROPINE OPHTH SOLN 1% 5ML BTL SUBLINGUAL PRN (14:44)
[2022-06-28] MEDS ORDERED: HALOPERIDOL LACTATE 5 MG/ML 1 ML VIAL IVP PRN (14:44)
[2022-06-28] MEDS ORDERED: ARTIFICIAL TEARS-HYPROMELLOSE DROPS 15 ML BTL BOTH EYES PRN (14:44)
[2022-06-28] MEDS ORDERED: ONDANSETRON 4 MG/2 ML VIAL IVP PRN (14:44)
[2022-06-28] MEDS ORDERED: METOCLOPRAMIDE 5 MG/ML 2 ML VIAL IVP PRN (14:44)
[2022-06-28] MEDS ORDERED: ACETAMINOPHEN TAB 325 MG TAB PO PRN (14:44)
[2022-06-28] MEDS ORDERED: SCOPOLAMINE 1 MG/72 HR PATCH TRANSDERM SCH (14:45)
[2022-06-28] MEDS: HYDROmorphone 1 MG/ML 1 ML SYRINGE IVP PRN ×2 (17:44→21:29)
[2022-06-28] MEDS: PANTOPRAZOLE 40 MG/10 ML VIAL IVP SCH (21:51)
[2022-06-28] MEDS: levETIRAcetam IV 500 MG in SODIUM CHLORIDE 0.9% 100 ML IVPB SCH (21:52)
[2022-06-29] MEDS ORDERED: LORazepam 1 MG/0.5 ML VIAL IV PRN (02:31)
[2022-06-29] MEDS: HYDROmorphone 1 MG/ML 1 ML SYRINGE IVP PRN ×5 (03:52→20:01)
[2022-06-29] MEDS: SODIUM CHLORIDE 0.45% 1,000 ML with SODIUM BICARB (1 MEQ/ML) 100 ML IV SCH ×4 (05:56→17:02)
[2022-06-29] MEDS: LACTULOSE 20 GM/30 ML CUP PO SCH ×4 (07:42→21:10)
[2022-06-29] MEDS: PANTOPRAZOLE 40 MG/10 ML VIAL IVP SCH ×2 (07:43→21:10)
--- NOTE | 2022-06-29 08:53 | P.PN ---
Subjective Progress Note Date: 06/29/22 Principal diagnosis: This is a 42-year-old female seen in consultation because of acute kidney injury in a patient with alcoholic's liver disease with cirrhosis and hepatic enceph alopathy. She came in because of new onset seizures. Patient is deeply jaundiced. Unable to give any history. This morning though she was somewhat better able to recognize her dialysis in the room. On admission she was hypotensive with blood pressure in the 70s to 80s systolic and heart rate in the 100. Blood pressure is slightly better in the 100-110 range now. Urine output is not documented, intake is not documented. Objective - Vital Signs Vital signs: Vital Signs Temp 96.3 F L 06/28/22 11:35 Pulse 87 06/29/22 04:30 Resp 16 06/29/22 04:30 BP 115/88 06/29/22 04:30 Pulse Ox 99 06/29/22 04:30 FiO2 Intake & Output 06/28/22 06/29/22 06/29/22 18:59 06:59 18:59 Output Total 300 Balance -300 Output: Urine 300 Other: Voiding Method Indwelling Catheter Indwelling Catheter # Bowel Movements 1 Examination A jaundiced but awake and alert and seems to be oriented. HEENT exam no JVP neck is supple no facial asymmetry Lungs clear to auscultation fair air entry bilaterally Heart sounds unremarkable for any murmur rub gallop Abdomen is slightly distended nontender Extremity exam was 3+ edema Neurologically awake alert oriented no asterixis but some tremors noted - Labs CBC & Chem 7: 06/28/22 12:22 06/28/22 08:30 Labs: Abnormal Lab Results - Last 24 Hours (Table) 06/28/22 06/28/22 06/28/22 Range/Units 07:18 08:30 12:22 WBC 10.8 H 11.7 H (3.8-10.6) k/uL RBC 2.05 L 2.24 L (3.80-5.40) m/uL Hgb 7.1 L D 7.8 L (11.4-16.0) gm/dL Hct 23.2 L 25.5 L (34.0-46.0) % MCV 113.2 H 113.5 H (80.0-100.0) fL MCHC 30.5 L 30.7 L (31.0-37.0) g/dL RDW 21.2 H 21.1 H (11.5-15.5) % Plt Count 29 L 30 L (150-450) k/uL Neutrophils # 8.3 H 8.8 H (1.3-7.7) k/uL Macrocytosis Marked A Marked A PT (9.0-12.0) sec INR (<1.2) APTT (22.0-30.0) sec Potassium 3.2 L (3.5-5.1) mmol/L Chloride 110 H (98-107) mmol/L Carbon Dioxide 13 L (22-30) mmol/L Creatinine 2.44 H (0.52-1.04) mg/dL Calcium 8.1 L (8.4-10.2) mg/dL Magnesium 1.5 L (1.6-2.3) mg/dL Total Bilirubin 16.0 H* (0.2-1.3) mg/dL Conjugated Bilirubin 12.0 H (0.0-0.3) mg/dL Unconjugated Bilirubin 1.8 H (0.0-1.1) mg/dL Delta Bilirubin 2.2 H (0.0-0.2) mg/dL AST 56 H (14-36) U/L Alkaline Phosphatase 136 H (38-126) U/L Total Protein 5.6 L (6.3-8.2) g/dL Albumin 3.0 L (3.5-5.0) g/dL 06/28/22 Range/Units 12:22 WBC (3.8-10.6) k/uL RBC (3.80-5.40) m/uL Hgb (11.4-16.0) gm/dL Hct (34.0-46.0) % MCV (80.0-100.0) fL MCHC (31.0-37.0) g/dL RDW (11.5-15.5) % Plt Count (150-450) k/uL Neutrophils # (1.3-7.7) k/uL Macrocytosis PT 19.9 H (9.0-12.0) sec INR 2.0 H (<1.2) APTT >200.0 H* (22.0-30.0) sec Potassium (3.5-5.1) mmol/L Chloride (98-107) mmol/L Carbon Dioxide (22-30) mmol/L Creatinine (0.52-1.04) mg/dL Calcium (8.4-10.2) mg/dL Magnesium (1.6-2.3) mg/dL Total Bilirubin (0.2-1.3) mg/dL Conjugated Bilirubin (0.0-0.3) mg/dL Unconjugated Bilirubin (0.0-1.1) mg/dL Delta Bilirubin (0.0-0.2) mg/dL AST (14-36) U/L Alkaline Phosphatase (38-126) U/L Total Protein (6.3-8.2) g/dL Albumin (3.5-5.0) g/dL Microbiology - Last 24 Hours (Table) 06/28/22 03:15 Urine Culture - Preliminary Urine,Voided 06/26/22 19:54 Urine Culture - Final Urine,Clean Catch Assessment and Plan Assessment: Impression 1. Acute kidney injury possibly and likely hepatorenal syndrome. Blood pressure is low could be just prerenal. Improved with albumin and Midrin and hepatorenal cocktail. Patient has been made comfort care. 2. Liver cirrhosis with ascites. Hepatic encephalopathy. Slightly better 3. Unlikely to be compartment syndrome because ascites is not severe IV. Severe non-gap and mild gap acidosis with bicarb of 13 and a gap of 15. Rule out methanol ingestion. The gap is small therefore unlikely. The non-gap acidosis could be from diarrhea but I'm not able to take any significant history of that. Today's labs are not available 5. Mildly Hypokalemia from poor intake. 6. Mild degree of hyponatremia secondary to acute kidney injury. 7. Anemia from multiple reasons including possible iron deficiency.. Recommendation 1. Patient is made comfort care perr her brother
--- NOTE | 2022-06-29 13:51 | P.PN ---
Subjective Progress Note Date: 06/29/22 Pts family converted patient to comfort care yesterday after goals of care coversation. Her BPs and mentation did improve overnight despite stopping treatment. Goal has changed to going back to intermediate with hospice. Gen: in no apparent distress, resting comfortably in bed Eyes: PERRL, no scleral injection or scleral icterus is present HENT: normocephalic, atraumatic, good hearing acuity, moist mucous membranes Neck: no tracheal deviation, full range of motion Resp: good air exchange, breathing comfortably with no accessory muscle use, no tactile fremitus CVS: good distal perfusion x 4, no pitting edema GI: soft, distended, positive ascites : no suprapubic tenderness, no CVAT, goss catheter not present MSK: no clubbing, no cyanosis, no noted contractures of extremities Skin: no noted rashes, petechiae; temperature of skin is appropriate, there is diffuse jaundice present Neuro: moving all extremities without signs of weakness, CN II-XII intact Labs and imaging reviewed as above Assessment/plan: Seizures, likely related to alcohol Acute kidney injury superimposed on chronic kidney disease Likely hepatorenal syndrome Complicated Urinary tract infection Hepatic encephalopathy Decompensated liver cirrhosis, secondary to alcohol Ascites Hypertension Plan: Patient will be treated with comfort medications and discharged to NH with hospice Dilaudid PRN Ativan PRN Scopolamine patch Continue lactulose, keppra Objective - Vital Signs Vital signs: Vital Signs Temp 96.3 F L 06/28/22 11:35 Pulse 87 06/29/22 08:00 Resp 10 L 06/29/22 09:12 BP 115/88 06/29/22 04:30 Pulse Ox 99 06/29/22 04:30 FiO2 Intake & Output 06/28/22 06/29/22 06/29/22 18:59 06:59 18:59 Output Total 300 125 Balance -300 -125 Output: Urine 300 125 Other: Voiding Method Indwelling Catheter Indwelling Catheter Indwelling Catheter # Bowel Movements 1 - Labs CBC & Chem 7: 06/28/22 12:22 06/28/22 08:30 Labs: Microbiology - Last 24 Hours (Table) 06/28/22 03:15 Urine Culture - Final Urine,Voided
[2022-06-29] MEDS: levETIRAcetam IV 500 MG in SODIUM CHLORIDE 0.9% 100 ML IVPB SCH (21:10)
[2022-06-30] MEDS: HYDROmorphone 1 MG/ML 1 ML SYRINGE IVP PRN ×5 (00:02→15:35)
[2022-06-30] MEDS: PANTOPRAZOLE 40 MG/10 ML VIAL IVP SCH (07:20)
[2022-06-30] MEDS: LACTULOSE 20 GM/30 ML CUP PO SCH ×3 (07:20→16:11)
--- NOTE | 2022-06-30 15:09 | P.PN ---
Subjective Progress Note Date: 06/30/22 Pt is comfort care only. Plan is discharge to snf with hospice. pending placement. Gen: in no apparent distress, resting comfortably in bed Eyes: PERRL, no scleral injection or scleral icterus is present HENT: normocephalic, atraumatic, good hearing acuity, moist mucous membranes Neck: no tracheal deviation, full range of motion Resp: good air exchange, breathing comfortably with no accessory muscle use, no tactile fremitus CVS: good distal perfusion x 4, no pitting edema GI: soft, distended, positive ascites : no suprapubic tenderness, no CVAT, goss catheter not present MSK: no clubbing, no cyanosis, no noted contractures of extremities Skin: no noted rashes, petechiae; temperature of skin is appropriate, there is diffuse jaundice present Neuro: moving all extremities without signs of weakness, CN II-XII intact Labs and imaging reviewed as above Assessment/plan: Seizures, likely related to alcohol Acute kidney injury superimposed on chronic kidney disease Likely hepatorenal syndrome Complicated Urinary tract infection Hepatic encephalopathy Decompensated liver cirrhosis, secondary to alcohol Ascites Hypertension Plan: Patient will be treated with comfort medications and discharged to NH with hospice Dilaudid PRN Ativan PRN Scopolamine patch Continue lactulose, keppra Objective - Vital Signs Vital signs: Vital Signs Temp 96.3 F L 06/28/22 11:35 Pulse 88 06/30/22 07:42 Resp 16 06/30/22 07:42 BP 93/57 06/30/22 07:42 Pulse Ox 98 06/30/22 07:42 FiO2 Intake & Output 06/29/22 06/30/22 06/30/22 18:59 06:59 18:59 Intake Total 0 118 Output Total 125 350 Balance -125 -350 118 Intake: Oral 0 118 Output: Urine 125 350 Uretheral (Goss) 175 Other: Voiding Method Indwelling Catheter Indwelling Catheter Indwelling Catheter - Labs CBC & Chem 7: 06/28/22 12:22 06/28/22 08:30
[2022-06-30 15:58] VITALS: BP 97/58; PULSE 98; RESP 10
--- NOTE | 2022-06-30 16:47 | P.DS ---
Providers Date of admission: 06/27/22 08:27 Expected date of discharge: 06/30/22 Attending physician: Jaci Hagan, Consults: 06/27/22 08:44 Consult Physician Routine Consulting Provider: Socorro Saavedra Consult Reason/Comments: Seizure Do you want consulting provider notified?: Yes 06/27/22 16:32 Consult Physician Routine Consulting Provider: Leida Lovell Consult Reason/Comments: hepatorenal syndrome? Do you want consulting provider notified?: Yes Primary care physician: [facility] Course: Seizures, likely related to alcohol Acute kidney injury superimposed on chronic kidney disease Likely hepatorenal syndrome Hepatic encephalopathy Decompensated liver cirrhosis, secondary to alcohol Ascites Hypertension 42-year-old woman with medical history of alcoholic liver cirrhosis, hypertension presented for seizure. Upon my evaluation, patient was afebrile, 109/83, 90% on room air, 78 heart rate. Her labs from today show mild leukocytosis to 11.8 which is improved from 12.2 on admission, anemia to 10.0 which is her baseline, platelets of 32 down from 38 on admission. Chemistries show sodium of 136, 3.4 potassium, bicarb of 13, BUN of 11, creatinine of 2.5. Liver function tests demonstrate total bilirubin 15.8, conjugated bilirubin of 10.7, unconjugated bilirubin of 1.3, AST of 81, ALT 22, alkaline phosphatase of 214, protein of 5.6, albumin of 2.1. Tylenol level on admission was negative. Covid was not detected. Patient's EKG shows sinus rhythm with low QRS voltage. Patient is thus far received 1 mg of Ativan, 5 mg of Valium, 2 L of normal saline, 100 mg of thiamine. Patient was monitored in the hospital and was noted to have a K I due to hepatorenal syndrome as well as altered mentation due to hepatic encephalopathy in the context of decompensated liver cirrhosis. Unfortunately, patient's mentation declined significantly and family was gathered for goals of care discussion given the patient's GUY D score was 35 portending a 52.6% mortality in 3 months. Given this information and the fact that patient would not be a candidate for liver transplantation due to her alcohol history, patient was transitioned to comfort care only. Patient had oscillating mentation and blood pressures, however her pain needs increased to requiring Dilaudid 1 mg every 3 hours. Hospice was consulted and recommended transitioning patient to [facility]IP comfort care with narcotic drip. Patient's family is in agreement the patient qualifies for hospice and has changed her goals to comfort only. I spent 45 minutes coordinating this complex discharge, discharge date 06/30 Gen: in no apparent distress, resting comfortably in bed Eyes: PERRL, no scleral injection or scleral icterus is present HENT: normocephalic, atraumatic, good hearing acuity, moist mucous membranes Neck: no tracheal deviation, full range of motion Resp: good air exchange, breathing comfortably with no accessory muscle use, no tactile fremitus CVS: good distal perfusion x 4, no pitting edema GI: soft, distended, positive ascites : no suprapubic tenderness, no CVAT, goss catheter not present MSK: no clubbing, no cyanosis, no noted contractures of extremities Skin: no noted rashes, petechiae; temperature of skin is appropriate, there is diffuse jaundice present Neuro: moving all extremities without signs of weakness, CN II-XII intact Patient Condition at Discharge: Critical Plan - Discharge Summary Discharge Rx Participant: No New Discharge Prescriptions: New Artificial Tears-Hypromellose [Artificial Tear Drops] 1 drops BOTH EYES Q2HR PRN ml PRN Reason: Dry Eye(S) Lactulose [Cephulac] 20 gm PO QID ml Acetaminophen Tab [Tylenol] 650 mg PO Q4HR PRN tab PRN Reason: Fever And/Or Mild Pain Atropine Ophth Soln 1% 5Ml [Isopto Atropine 1% 5Ml] 2 drops SUBLINGUAL Q4HR PRN ml PRN Reason: Excess Secretions Scopolamine 1 mg/72 Hr Patch [TransDerm Scop] 1 patch TRANSDERM Q72H patch Continue Omeprazole 20 mg PO DAILY oxyCODONE HCL [OxyIR] 5 mg PO Q8H PRN PRN Reason: Moderate To Severe Pain Ibuprofen [Motrin Ib] 400 mg PO Q6H PRN PRN Reason: Pain Ipratropium-Albuterol Nebulize [Duoneb 0.5 mg-3 mg/3 ml Soln] 3 ml INHALATION RT-QID Cholecalciferol [Vitamin D3 (25 Mcg = 1000 Iu)] 50 mcg PO HS Folic Acid 1 mg PO DAILY@0700 Vitamin B Complex 2 cap PO HS Ascorbic Acid [Vitamin C] 500 mg PO DAILY@0700 Ondansetron [Zofran] 4 mg PO Q6H PRN PRN Reason: Nausea And Vomiting Levothyroxine Sodium [Synthroid] 75 mcg PO AC-BRKFST@0700 Famotidine [Pepcid] 20 mg PO DAILY@0700 Discontinued Metoprolol Tartrate [Lopressor] 12.5 mg PO BID@0700,1600 Acyclovir 400 mg PO DAILY@0700 Potassium Chloride [Potassium Chloride ER] 10 meq PO DAILY Furosemide [Lasix] 20 mg PO DAILY Discharge Medication List Omeprazole 20 mg PO DAILY 10/29/18 [History] Ascorbic Acid [Vitamin C] 500 mg PO DAILY@0700 06/25/22 [History] Cholecalciferol [Vitamin D3 (25 Mcg = 1000 Iu)] 50 mcg PO HS 06/25/22 [History] Famotidine [Pepcid] 20 mg PO DAILY@0700 06/25/22 [History] Folic Acid 1 mg PO DAILY@0700 06/25/22 [History] Ibuprofen [Motrin Ib] 400 mg PO Q6H PRN 06/25/22 [History] Ipratropium-Albuterol Nebulize [Duoneb 0.5 mg-3 mg/3 ml Soln] 3 ml INHALATION RT-QID 06/25/22 [History] Levothyroxine Sodium [Synthroid] 75 mcg PO AC-BRKFST@0700 06/25/22 [History] Ondansetron [Zofran] 4 mg PO Q6H PRN 06/25/22 [History] Vitamin B Complex 2 cap PO HS 06/25/22 [History] oxyCODONE HCL [OxyIR] 5 mg PO Q8H PRN 06/25/22 [History] Acetaminophen Tab [Tylenol] 650 mg PO Q4HR PRN tab 06/30/22 [Rx] Artificial Tears-Hypromellose [Artificial Tear Drops] 1 drops BOTH EYES Q2HR PRN ml 06/30/22 [Rx] Atropine Ophth Soln 1% 5Ml [Isopto Atropine 1% 5Ml] 2 drops SUBLINGUAL Q4HR PRN ml 06/30/22 [Rx] Lactulose [Cephulac] 20 gm PO QID ml 06/30/22 [Rx] Scopolamine 1 mg/72 Hr Patch [TransDerm Scop] 1 patch TRANSDERM Q72H patch 06/30/22 [Rx] Follow up Appointment(s)/Referral(s): Joe Lan MD [Primary Care Provider] - 1-2 days
== END 2022-06-30 17:35 | DRG 100 ==
LOC: EC 18:37 → 5NMEDONC 06-27 08:27 → 3SCARD 06-27 13:47
PROVIDERS: ADMIT Internal Medicine; ATTEND Internal Medicine
DX: G40.509 Epileptic seizures related to external causes, not intractable, without status epilepticus (principal); K76.7 Hepatorenal syndrome; E87.1 Hypo-osmolality and hyponatremia; E87.2 Acidosis; N17.9 Acute kidney failure, unspecified; N39.0 Urinary tract infection, site not specified; K70.31 Alcoholic cirrhosis of liver with ascites; K70.40 Alcoholic hepatic failure without coma; F10.20 Alcohol dependence, uncomplicated; F32.A Depression, unspecified; F41.9 Anxiety disorder, unspecified; I12.9 Hypertensive chronic kidney disease with stage 1 through stage 4 chronic kidney disease, or unspecified chronic kidney disease; N18.9 Chronic kidney disease, unspecified; E87.6 Hypokalemia; M54.9 Dorsalgia, unspecified; R26.81 Unsteadiness on feet; D63.1 Anemia in chronic kidney disease; F14.11 Cocaine abuse, in remission; D50.9 Iron deficiency anemia, unspecified; Z20.822 Contact with and (suspected) exposure to COVID-19; R29.6 Repeated falls; Z51.5 Encounter for palliative care; Z79.890 Hormone replacement therapy; Z79.899 Other long term (current) drug therapy; Z87.891 Personal history of nicotine dependence; Z88.0 Allergy status to penicillin; Z88.1 Allergy status to other antibiotic agents; Z88.2 Allergy status to sulfonamides; Z88.6 Allergy status to analgesic agent; Z82.49 Family history of ischemic heart disease and other diseases of the circulatory system
CPT/HCPCS: 36415; 70450; 76770; 80048; 80053; 80076; 80143; 81001; 82009; 82140; 82248; 82550; 83605; 83735; 83930; 84600; 85025; 85610; 85730; 87077; 87086; 87186; 87635; 93005; 94640; 95816; 96361; 96365; 96375; 96376; 99285

== ENCOUNTER 2022-06-30 16:33 | Inpatient (IN) | payer MEDICAID ==
[2022-06-30] MEDS ORDERED: MORPHINE SULFATE 2 MG/ML SYRINGE IV PRN (16:36)
[2022-06-30] MEDS ORDERED: ACETAMINOPHEN SUPPOSITORY 650 MG SUPP RECTAL PRN (16:36)
[2022-06-30] MEDS ORDERED: ONDANSETRON 4 MG/2 ML VIAL IVP PRN (16:36)
[2022-06-30] MEDS ORDERED: LORazepam 2 MG/ML INJ IV PRN (16:36)
--- NOTE | 2022-06-30 16:51 | P.HPIM ---
History of Present Illness H&P Date: 06/30/22 Chief Complaint: Hospice for Liver Failure 42-year-old woman with medical history of alcoholic liver cirrhosis, hypertension presented for seizure. Upon my evaluation, patient was afebrile, 109/83, 90% on room air, 78 heart rate. Her labs from today show mild leukocytosis to 11.8 which is improved from 12.2 on admission, anemia to 10.0 which is her baseline, platelets of 32 down from 38 on admission. Chemistries show sodium of 136, 3.4 potassium, bicarb of 13, BUN of 11, creatinine of 2.5. Liver function tests demonstrate total bilirubin 15.8, conjugated bilirubin of 10.7, unconjugated bilirubin of 1.3, AST of 81, ALT 22, alkaline phosphatase of 214, protein of 5.6, albumin of 2.1. Tylenol level on admission was negative. Covid was not detected. Patient's EKG shows sinus rhythm with low QRS voltage. Patient is thus far received 1 mg of Ativan, 5 mg of Valium, 2 L of normal saline, 100 mg of thiamine. Patient was monitored in the hospital and was noted to have a K I due to hepatorenal syndrome as well as altered mentation due to hepatic encephalopathy in the context of decompensated liver cirrhosis. Unfortunately, patient's mentation declined significantly and family was gathered for goals of care discussion given the patient's GUY D score was 35 portending a 52.6% mortality in 3 months. Given this information and the fact that patient would not be a candidate for liver transplantation due to her alcohol history, patient was transitioned to comfort care only. Patient had oscillating mentation and blood pressures, however her pain needs increased to requiring Dilaudid 1 mg every 3 hours. Hospice was consulted and recommended transitioning patient to [facility]IP comfort care with narcotic drip. Patient's family is in agreement the patient qualifies for hospice and has changed her goals to comfort only. See same day ROS and Phx from previous encounter - this will be a non-billable H&P. Labs and imaging reviewed from previous hospitalization. Assessment/plan: Seizures, likely related to alcohol Acute kidney injury superimposed on chronic kidney disease Likely hepatorenal syndrome Complicated Urinary tract infection Hepatic encephalopathy Decompensated liver cirrhosis, secondary to alcohol Ascites Hypertension Plan: Patient will be treated with comfort medications and discharged to [facility] with hospice Dilaudid PRN Ativan PRN Scopolamine patch Continue lactulose, keppra Past Medical History Past Medical History: Hypertension, Skin Disorder Additional Past Medical History / Comment(s): Skin diana, back pain History of Any Multi-Drug Resistant Organisms: None Reported Past Surgical History: No Surgical Hx Reported Past Psychological History: Anxiety, Depression Smoking Status: Former smoker Past Alcohol Use History: Abuse, Heavy Past Drug Use History: Cocaine, Marijuana - Past Family History Father Family Medical History: Hypertension Mother Family Medical History: Hypertension Medications and Allergies Home Medications Medication Instructions Recorded Confirmed Type Omeprazole 20 mg PO DAILY 10/29/18 06/27/22 History Ascorbic Acid [Vitamin C] 500 mg PO DAILY@69906/25/22 06/27/22 History Cholecalciferol [Vitamin D3 (25 50 mcg PO HS 06/25/22 06/27/22 History Mcg = 1000 Iu)] Famotidine [Pepcid] 20 mg PO DAILY@69906/25/22 06/27/22 History Folic Acid 1 mg PO DAILY@69906/25/22 06/27/22 History Ibuprofen [Motrin Ib] 400 mg PO Q6H PRN 06/25/22 06/27/22 History Ipratropium-Albuterol Nebulize 3 ml INHALATION RT-QID 06/25/22 06/27/22 History [Duoneb 0.5 mg-3 mg/3 ml Soln] Levothyroxine Sodium [Synthroid] 75 mcg PO AC-BRKFST@69906/25/22 06/27/22 History Ondansetron [Zofran] 4 mg PO Q6H PRN 06/25/22 06/27/22 History Vitamin B Complex 2 cap PO HS 06/25/22 06/27/22 History oxyCODONE HCL [OxyIR] 5 mg PO Q8H PRN 06/25/22 06/27/22 History Acetaminophen Tab [Tylenol] 650 mg PO Q4HR PRN tab 06/30/22 Rx Artificial Tears-Hypromellose 1 drops BOTH EYES Q2HR PRN ml 06/30/22 Rx [Artificial Tear Drops] Atropine Ophth Soln 1% 5Ml [Isopto 2 drops SUBLINGUAL Q4HR PRN ml 06/30/22 Rx Atropine 1% 5Ml] Lactulose [Cephulac] 20 gm PO QID ml 06/30/22 Rx Scopolamine 1 mg/72 Hr Patch 1 patch TRANSDERM Q72H patch 06/30/22 Rx [TransDerm Scop] Allergies Allergy/AdvReac Type Severity Reaction Status Date / Time amoxicillin [From Augmentin] Allergy Rash/Hives Verified 06/27/22 07:06 clavulanic acid Allergy Rash/Hives Verified 06/27/22 07:06 [From Augmentin] morphine Allergy Unknown Verified 06/27/22 07:06 Penicillins Allergy Unknown Verified 06/27/22 07:06 sulfamethoxazole Allergy Rash/Hives Verified 06/27/22 07:06 [From Bactrim] trimethoprim [From Bactrim] Allergy Rash/Hives Verified 06/27/22 07:06 Physical Exam Osteopathic Statement: *. No significant issues noted on an osteopathic structural exam other than those noted in the History and Physical/Consult. Vitals: Intake and Output 06/30/22 06/30/22 06/30/22 06:59 14:59 22:59 Other: Weight 72.57 kg
[2022-06-30] MEDS: MORPHINE SULFATE (100 MG/2 ML) 100 MG in SODIUM CHLORIDE 0.9% 100 ML IV SCH (18:01)
[2022-07-01] MEDS ORDERED: DICLOFENAC SODIUM GEL 100 GM TUBE TOPICAL SCH (09:00)
[2022-07-01] MEDS: SCOPOLAMINE 1 MG/72 HR PATCH TRANSDERM SCH (15:17)
[2022-07-01] MEDS: MORPHINE SULFATE (100 MG/2 ML) 100 MG in SODIUM CHLORIDE 0.9% 100 ML IV SCH (16:04)
--- NOTE | 2022-07-01 17:08 | P.PN ---
Subjective Progress Note Date: 07/01/22 Patient was seen and examined. No acute events overnight. Family at bedside. Minimally responsive. General: non toxic, no distress, appears at stated age, jaundiced Derm: warm, dry Head: atraumatic, normocephalic, symmetric Eyes: EOMI, no lid lag, anicteric sclera Mouth: no lip lesion, mucus membranes moist Lungs: no accessory muscle use Ext: no gross muscle atrophy, no contractures Assessment/plan: Seizures, likely related to alcohol Acute kidney injury superimposed on chronic kidney disease Likely hepatorenal syndrome Complicated Urinary tract infection Hepatic encephalopathy Decompensated liver cirrhosis, secondary to alcohol Ascites Hypertension Plan: Patient will be treated with comfort medications and discharged to NH with hospice Dilaudid PRN Ativan PRN Scopolamine patch Continue lactulose, keppra Objective - Vital Signs Vital signs: Vital Signs Temp Pulse 96 07/01/22 15:14 Resp 16 07/01/22 15:14 BP 90/63 07/01/22 15:14 Pulse Ox 99 07/01/22 15:14 FiO2 Intake & Output 06/30/22 07/01/22 07/01/22 18:59 06:59 18:59 Intake Total 100 17.442 36.771 Output Total 275 150 Balance 100 -257.558 -113.229 Weight 72.57 kg Intake: Intake, IV Titration 17.442 36.771 Amount Morphine Sulfate (100 mg/ 17.442 36.771 2 ml) 100 mg In Sodium Chloride 0.9% 100 ml @ 1 MG/HR 1.02 mls/hr IV . Q24H [facility] Rx#:[id number] Oral 100 Output: Urine 275 150 Other: Voiding Method Indwelling Catheter
[2022-07-02] MEDS: MORPHINE SULFATE (100 MG/2 ML) 100 MG in SODIUM CHLORIDE 0.9% 100 ML IV SCH ×2 (09:15→23:24)
--- NOTE | 2022-07-02 14:31 | P.PN ---
Subjective Progress Note Date: 07/02/22 Patient was seen and examined. No acute events overnight. Family at bedside. Minimally responsive. General: non toxic, no distress, appears at stated age, jaundiced Derm: warm, dry Head: atraumatic, normocephalic, symmetric Eyes: icteric sclera Mouth: no lip lesion, mucus membranes moist Lungs: no accessory muscle use Ext: no gross muscle atrophy, no contractures Assessment/plan: Seizures, likely related to alcohol Acute kidney injury superimposed on chronic kidney disease Likely hepatorenal syndrome Complicated Urinary tract infection Hepatic encephalopathy Decompensated liver cirrhosis, secondary to alcohol Ascites Hypertension Plan: Patient will be treated with comfort medications and discharged to NH with hospice Morphine drip Ativan PRN Scopolamine patch Objective - Vital Signs Vital signs: Vital Signs Temp Pulse 91 07/02/22 08:00 Resp 10 L 07/02/22 08:00 BP 154/87 07/02/22 08:00 Pulse Ox 82 L 07/02/22 08:00 FiO2 Intake & Output 07/01/22 07/02/22 07/02/22 18:59 06:59 18:59 Intake Total 36.771 148.704 18.326 Output Total 150 200 0 Balance -113.229 -51.296 18.326 Intake: IV 72 morphine 72 Intake, IV Titration 36.771 76.704 18.326 Amount Morphine Sulfate (100 mg/ 36.771 76.704 18.326 2 ml) 100 mg In Sodium Chloride 0.9% 100 ml @ 1 MG/HR 1.02 mls/hr IV . Q24H [facility] Rx#:[id number] Output: Urine 150 200 0 Stool 0 Urine/Stool Mix 0 Emesis 0 Other: Voiding Method Indwelling Catheter Indwelling Catheter # Voids 0 # Bowel Movements 0
[2022-07-02] MEDS: ATROPINE OPHTH SOLN 1% 5ML BTL SUBLINGUAL PRN (19:45)
[2022-07-02] MEDS: LORazepam 1 MG/0.5 ML VIAL IV PRN (19:45)
[2022-07-03 10:04] VITALS: BP 73/47
[2022-07-03] MEDS: MORPHINE SULFATE (100 MG/2 ML) 100 MG in SODIUM CHLORIDE 0.9% 100 ML IV SCH ×2 (11:03→22:02)
--- NOTE | 2022-07-03 13:55 | P.PN ---
Subjective Progress Note Date: 07/03/22 Patient was seen and examined. No acute events overnight. Family at bedside. Minimally responsive. General: non toxic, no distress, appears at stated age, jaundiced Derm: warm, dry Head: atraumatic, normocephalic, symmetric Eyes: icteric sclera Mouth: no lip lesion, mucus membranes moist Lungs: no accessory muscle use Ext: no gross muscle atrophy, no contractures Assessment/plan: Seizures, likely related to alcohol Acute kidney injury superimposed on chronic kidney disease Likely hepatorenal syndrome Complicated Urinary tract infection Hepatic encephalopathy Decompensated liver cirrhosis, secondary to alcohol Ascites Hypertension Plan: Patient will be treated with comfort medications and discharged to NH with hospice Morphine drip Ativan PRN Scopolamine patch Objective - Vital Signs Vital signs: Vital Signs Temp Pulse 95 07/03/22 08:00 Resp 8 L 07/03/22 08:00 BP 73/47 07/03/22 08:00 Pulse Ox 99 07/03/22 08:00 FiO2 Intake & Output 07/02/22 07/03/22 07/03/22 18:59 06:59 18:59 Intake Total 76.160 44.166 143.064 Output Total 100 75 Balance -23.840 -30.834 143.064 Intake: IV 48 morphine 48 Intake, IV Titration 76.160 44.166 95.064 Amount Morphine Sulfate (100 mg/ 76.160 44.166 95.064 2 ml) 100 mg In Sodium Chloride 0.9% 100 ml @ 1 MG/HR 1.02 mls/hr IV . Q24H [facility] Rx#:[id number] Oral 0 Output: Urine 100 75 Stool 0 Urine/Stool Mix 0 Emesis 0 Other: Voiding Method Indwelling Catheter Indwelling Catheter Indwelling Catheter # Voids 0 # Bowel Movements 0
[2022-07-03] MEDS ORDERED: GLYCOPYRROLATE 0.2 MG/ML 2 ML VIAL IVP PRN ×2 (16:01→16:12)
[2022-07-04] MEDS: MORPHINE SULFATE (100 MG/2 ML) 100 MG in SODIUM CHLORIDE 0.9% 100 ML IV SCH ×2 (09:26→20:44)
--- NOTE | 2022-07-04 10:48 | P.PN ---
Subjective Progress Note Date: 07/04/22 Patient was seen and examined. No acute events overnight. Minimally responsive. General: non toxic, no distress, appears at stated age, jaundiced Derm: warm, dry Head: atraumatic, normocephalic, symmetric, blood noted in the oropharynx Eyes: icteric sclera Mouth: no lip lesion, mucus membranes moist Lungs: no accessory muscle use Ext: no gross muscle atrophy, no contractures Assessment/plan: Seizures, likely related to alcohol Acute kidney injury superimposed on chronic kidney disease Likely hepatorenal syndrome Complicated Urinary tract infection Hepatic encephalopathy Decompensated liver cirrhosis, secondary to alcohol Ascites Hypertension Plan: Patient will be treated with comfort medications and discharged to NH with hospice Morphine drip Ativan PRN Scopolamine patch Objective - Vital Signs Vital signs: Vital Signs Temp Pulse 95 07/03/22 20:00 Resp 8 L 07/03/22 20:00 BP 73/47 07/03/22 08:00 Pulse Ox 99 07/03/22 08:00 FiO2 Intake & Output 07/03/22 07/04/22 07/04/22 18:59 06:59 18:59 Intake Total 251.152 42.228 102 Output Total 50 Balance 251.152 -7.772 102 Intake: IV 104 morphine 104 Intake, IV Titration 147.152 42.228 102 Amount Morphine Sulfate (100 mg/ 147.152 42.228 102 2 ml) 100 mg In Sodium Chloride 0.9% 100 ml @ 1 MG/HR 1.02 mls/hr IV . Q24H [facility] Rx#:[id number] Oral 0 Output: Urine 50 Other: Voiding Method Indwelling Catheter Indwelling Catheter
[2022-07-04 12:45] VITALS: BMI 22.3
[2022-07-04 16:26] VITALS: PULSE 106; RESP 16
[2022-07-04] MEDS: ATROPINE OPHTH SOLN 1% 5ML BTL SUBLINGUAL PRN ×2 (17:59→20:44)
[2022-07-04] MEDS: SCOPOLAMINE 1 MG/72 HR PATCH TRANSDERM SCH (17:59)
[2022-07-04] MEDS: LORazepam 1 MG/0.5 ML VIAL IV PRN (23:55)
--- NOTE | 2022-07-05 10:21 | P.DS ---
Providers Date of admission: 06/30/22 17:36 Expected date of discharge: 07/05/22 Attending physician: Jaci Hagan DO Primary care physician: Joe [facility]ge [facility] Course: 42-year-old woman with medical history of alcoholic liver cirrhosis, hypertension presented for seizure. Upon my evaluation, patient was afebrile, 109/83, 90% on room air, 78 heart rate. Her labs from today show mild leukocytosis to 11.8 which is improved from 12.2 on admission, anemia to 10.0 which is her baseline, platelets of 32 down from 38 on admission. Chemistries show sodium of 136, 3.4 potassium, bicarb of 13, BUN of 11, creatinine of 2.5. Liver function tests demonstrate total bilirubin 15.8, conjugated bilirubin of 10.7, unconjugated bilirubin of 1.3, AST of 81, ALT 22, alkaline phosphatase of 214, protein of 5.6, albumin of 2.1. Tylenol level on admission was negative. Covid was not detected. Patient's EKG shows sinus rhythm with low QRS voltage. Patient is thus far received 1 mg of Ativan, 5 mg of Valium, 2 L of normal saline, 100 mg of thiamine. Patient was monitored in the hospital and was noted to have ARLENE due to hepatorenal syndrome as well as altered mentation due to hepatic encephalopathy in the context of decompensated liver cirrhosis. Unfortunately, patient's mentation declined significantly and family was gathered for goals of care discussion given the patient's GUY D score was 35 portending a 52.6% mortality in 3 months. Given this information and the fact that patient would not be a candidate for liver transplantation due to her alcohol history, patient was transitioned to comfort care only. Patient had oscillating mentation and blood pressures, however her pain needs increased to requiring Dilaudid 1 mg every 3 hours. Hospice was consulted and recommended transitioning patient to [facility] comfort care with narcotic drip. Patient's family is in agreement the patient qualifies for hospice and has changed her goals to comfort only. Patient was started on a morphine drip. She received Ativan as needed. She received scopolamine patch for secretions. Hospice was involved during the care of this patient. Patient on 07/05/2022. Assessment/plan: Seizures, likely related to alcohol Acute kidney injury superimposed on chronic kidney disease Likely hepatorenal syndrome Complicated Urinary tract infection Hepatic encephalopathy Decompensated liver cirrhosis, secondary to alcohol Ascites Hypertension Patient Condition at Discharge: Undetermined Plan - Discharge Summary New Discharge Prescriptions: No Action Omeprazole 20 mg PO DAILY oxyCODONE HCL [OxyIR] 5 mg PO Q8H PRN PRN Reason: Moderate To Severe Pain Ibuprofen [Motrin Ib] 400 mg PO Q6H PRN PRN Reason: Pain Ipratropium-Albuterol Nebulize [Duoneb 0.5 mg-3 mg/3 ml Soln] 3 ml INHALATION RT-QID Cholecalciferol [Vitamin D3 (25 Mcg = 1000 Iu)] 50 mcg PO HS Folic Acid 1 mg PO DAILY@0700 Vitamin B Complex 2 cap PO HS Ascorbic Acid [Vitamin C] 500 mg PO DAILY@0700 Artificial Tears-Hypromellose [Artificial Tear Drops] 1 drops BOTH EYES Q2HR PRN ml PRN Reason: Dry Eye(S) Lactulose [Cephulac] 20 gm PO QID ml Acetaminophen Tab [Tylenol] 650 mg PO Q4HR PRN tab PRN Reason: Fever And/Or Mild Pain Ondansetron [Zofran] 4 mg PO Q6H PRN PRN Reason: Nausea And Vomiting Levothyroxine Sodium [Synthroid] 75 mcg PO AC-BRKFST@0700 Famotidine [Pepcid] 20 mg PO DAILY@0700 Atropine Ophth Soln 1% 5Ml [Isopto Atropine 1% 5Ml] 2 drops SUBLINGUAL Q4HR PRN ml PRN Reason: Excess Secretions Scopolamine 1 mg/72 Hr Patch [TransDerm Scop] 1 patch TRANSDERM Q72H patch Discharge Medication List Omeprazole 20 mg PO DAILY 10/29/18 [History] Ascorbic Acid [Vitamin C] 500 mg PO DAILY@69906/25/22 [History] Cholecalciferol [Vitamin D3 (25 Mcg = 1000 Iu)] 50 mcg PO HS 06/25/22 [History] Famotidine [Pepcid] 20 mg PO DAILY@69906/25/22 [History] Folic Acid 1 mg PO DAILY@69906/25/22 [History] Ibuprofen [Motrin Ib] 400 mg PO Q6H PRN 06/25/22 [History] Ipratropium-Albuterol Nebulize [Duoneb 0.5 mg-3 mg/3 ml Soln] 3 ml INHALATION RT-QID 06/25/22 [History] Levothyroxine Sodium [Synthroid] 75 mcg PO AC-BRKFST@0700 06/25/22 [History] Ondansetron [Zofran] 4 mg PO Q6H PRN 06/25/22 [History] Vitamin B Complex 2 cap PO HS 06/25/22 [History] oxyCODONE HCL [OxyIR] 5 mg PO Q8H PRN 06/25/22 [History] Acetaminophen Tab [Tylenol] 650 mg PO Q4HR PRN tab 06/30/22 [Rx] Artificial Tears-Hypromellose [Artificial Tear Drops] 1 drops BOTH EYES Q2HR PRN ml 06/30/22 [Rx] Atropine Ophth Soln 1% 5Ml [Isopto Atropine 1% 5Ml] 2 drops SUBLINGUAL Q4HR PRN ml 06/30/22 [Rx] Lactulose [Cephulac] 20 gm PO QID ml 06/30/22 [Rx] Scopolamine 1 mg/72 Hr Patch [TransDerm Scop] 1 patch TRANSDERM Q72H patch 06/30/22 [Rx] Discharge Disposition: - Preliminary Cause of Preliminary Cause of : Decompensated liver cirrhosis
== END 2022-07-05 03:43 | disposition expired | DRG 951 ==
LOC: 3SCARD 17:36
PROVIDERS: ADMIT Internal Medicine; ATTEND Internal Medicine
DX: Z51.5 Encounter for palliative care (principal); K76.7 Hepatorenal syndrome; N17.9 Acute kidney failure, unspecified; N39.0 Urinary tract infection, site not specified; K72.90 Hepatic failure, unspecified without coma; Z66 Do not resuscitate; D64.9 Anemia, unspecified; F32.A Depression, unspecified; F41.9 Anxiety disorder, unspecified; I12.9 Hypertensive chronic kidney disease with stage 1 through stage 4 chronic kidney disease, or unspecified chronic kidney disease; K70.31 Alcoholic cirrhosis of liver with ascites; N18.9 Chronic kidney disease, unspecified; R56.9 Unspecified convulsions; Z79.890 Hormone replacement therapy; Z82.49 Family history of ischemic heart disease and other diseases of the circulatory system; Z87.891 Personal history of nicotine dependence; Z88.5 Allergy status to narcotic agent; Z88.0 Allergy status to penicillin; Z88.2 Allergy status to sulfonamides; Z88.8 Allergy status to other drugs, medicaments and biological substances
CPT/HCPCS: 94760